=== PATIENT | male | born 1935 | race Caucasian/White ===

== ENCOUNTER 2017-04-03 22:24 | Inpatient (IN) | payer MEDICARE ==
[~2017-04-03] VITALS: Ht 165.1 cm; Wt 106.6 kg
[~2017-04-03 22:24] MED LIST: ALBU18HF IH; ALBU2.5V5 NEB; ALBU8.5H8 INH; ALPR0.254 PO; AMLO10TA2 PO; ASPI325T8 PO; ATEN100T PO; ATEN50TA PO; AZEL23SP NS; BENZ100C PO; BISA5TAB4 PO; BUDE10.2 IH; FLUT1DIS IH; FLUT1DIS3 IH; FURO-68 PO; GLIM1TAB2 PO; Guaifenesin PO; HYDR-2758 PO; IBUP800T19 PO; INDO25CA PO; Ipratropium/Albuterol Sulfate NEB; LISI-334 PO; LISI1TAB7 PO; LOVA40TA2 PO; METH4TAB2 PO; MONT10TA6 PO; POTA20TA12 PO; PRED-220 PO; TRAM-48 PO; VANC1VIA3 MC
[2017-04-03 22:40] VITALS: BP 162/81
[2017-04-03] MEDS ORDERED: VANCOMYCIN PER PHARMACY MC PRN (22:45)
[2017-04-03] MEDS ORDERED: VANCOMYCIN 2 GM in IV NORMAL SALINE 500ML 500 ML IV ONE (23:00)
[2017-04-03] MEDS ORDERED: fentaNYL PF 100 MCG/2 ML VIAL IV PRN (23:15)
[2017-04-03 23:26] LABS: BASO # 0.1 x10^3/uL (0.0-0.2); BASO % 1 % (0-3); EOS # 0.5 x10^3/uL (0.0-0.7); EOS % 4 % (0-3); HEMATOCRIT 44.9 % (39.0-53.0); HEMOGLOBIN 15.2 g/dL (13.0-17.5); LYMPH # 1.6 x10^3/uL (1.0-4.8); LYMPH % 13 % (24-48); MEAN CORPUSCULAR HEMOGLOBIN 30 pg (25-35); MEAN CORPUSCULAR HGB CONC 34 g/dL (31-37); MEAN CORPUSCULAR VOLUME 89 fL (79-100); MONO # 1.6 x10^3/uL (0.0-1.1); MONO % 14 % (0-9); NEUT # 8.2 x10^3uL (1.8-7.7); NEUT % 68 % (31-73); PLATELET COUNT 241 x10^3/uL (140-400); RED BLOOD COUNT 5.03 x10^6/uL (4.30-5.70); RED CELL DISTRIBUTION WIDTH 12.9 % (11.5-14.5)
[2017-04-03] MEDS ORDERED: HYDR-2758 PO (23:30)
[2017-04-03] MEDS ORDERED: ALBU2.5V14 NEB (23:31)
[2017-04-03 23:42] LABS: ALBUMIN 3.9 g/dL (3.4-5.0); ALBUMIN/GLOBULIN RATIO 0.9 (1.0-1.7); CALCIUM 8.8 mg/dL (8.5-10.1); CREATININE 1.6 mg/dL (0.7-1.3); GFR 41.9; POTASSIUM 3.7 mmol/L (3.5-5.1); TOTAL PROTEIN 8.3 g/dL (6.4-8.2)
[2017-04-04 05:01] VITALS: BP 146/83
[2017-04-04 06:10] LABS: CALCIUM 8.3 mg/dL (8.5-10.1); CREATININE 1.5 mg/dL (0.7-1.3); GFR 45.1; POTASSIUM 3.9 mmol/L (3.5-5.1)
[2017-04-04 06:22] LABS: BASO # 0.1 x10^3/uL (0.0-0.2); BASO % 1 % (0-3); EOS # 0.2 x10^3/uL (0.0-0.7); EOS % 2 % (0-3); HEMOGLOBIN 13.9 g/dL (13.0-17.5); LYMPH # 1.7 x10^3/uL (1.0-4.8); LYMPH % 15 % (24-48); MEAN CORPUSCULAR HEMOGLOBIN 30 pg (25-35); MEAN CORPUSCULAR HGB CONC 34 g/dL (31-37); MEAN CORPUSCULAR VOLUME 90 fL (79-100); MONO # 1.7 x10^3/uL (0.0-1.1); MONO % 15 % (0-9); NEUT # 7.3 x10^3uL (1.8-7.7); NEUT % 67 % (31-73); PLATELET COUNT 212 x10^3/uL (140-400); RED BLOOD COUNT 4.57 x10^6/uL (4.30-5.70); RED CELL DISTRIBUTION WIDTH 13.1 % (11.5-14.5)
[2017-04-04 07:35] LABS: SEDIMENTATION RATE 21 (0-15)
[2017-04-04] MEDS ORDERED: HYDROcodone/APAP 5/325MG 1 TAB TABLET PO PRN (07:45)
[2017-04-04] MEDS ORDERED: ALBUTEROL SULFATE 2.5 MG/0.5 ML NEBU. NEB SCH (08:00)
[2017-04-04] MEDS: ASPIRIN 325 MG TABLET PO SCH (08:58)
[2017-04-04] MEDS: ALPRAZolam 0.25 MG TABLET PO SCH ×2 (09:00→20:59)
[2017-04-04] MEDS ORDERED: FUROSEMIDE 40 MG TABLET PO SCH (09:00)
[2017-04-04] MEDS: amLODIPine BESYLATE 10 MG TABLET PO SCH (09:00)
[2017-04-04] MEDS: ATENOLOL 50 MG TABLET PO SCH (09:01)
[2017-04-04] MEDS: GLIMEPIRIDE 1 MG TABLET PO SCH (09:01)
--- NOTE | 2017-04-04 10:08 | HP ---
ADMIT DATE: 04/04/2017 HISTORY OF PRESENT ILLNESS: A 81-year-old gentleman with cellulitis to his right wrist and hand area. The patient has been treated as an outpatient for such. He was placed on oral Cipro; however, the patient began to spike temperatures last night, swollen right hand became increasingly painful and as a result of this, the patient was admitted to the hospital for IV antibiotic therapy and alike. The patient did have an elevated white count when he came in. Other labs are still pending. PAST MEDICAL HISTORY: That of COPD, bronchitis, dementia, anemia of chronic disease, acute renal failure, hypocalcemia, protein malnutrition, hyperbilirubinemia, type 2 diabetes poorly controlled. The patient also has had a history of sleep apnea, pneumonia, hemorrhoids, urinary urgency, degenerative arthritis in leg. MEDICATIONS: DuoNeb treatments, Xanax 0.25, Norvasc 10, aspirin 325, atenolol 100, Advair 250/50, furosemide 40 mg, glyburide, hydrocodone p.r.n. ALLERGIES: Penicillin and codeine. FAMILY HISTORY: Unremarkable. Father had some form of cancer and stroke. SOCIAL HISTORY: No smoking, alcohol, or drug use. Lives at home with his . REVIEW OF SYSTEMS: The patient outside of some fever, chills, swelling to the right hand and eyes, chest pain, shortness of breath, denies abdominal pain, denies any melena, hematochezia, hematemesis. Neurologically intact. PHYSICAL EXAMINATION: GENERAL: White male WD, WN, slightly overweight. VITAL SIGNS: Blood pressure 160/80, respiratory rate 20, pulse 80, afebrile, oxygen saturation 92% on room air. HEENT: The patient's head was atraumatic, normocephalic. Eyes: PERRLA without jaundice. Mouth and throat were normal. NECK: Supple without JVD or carotid bruits. No thyromegaly. LUNGS: Diminished throughout, poor movement of air but clear. CARDIOVASCULAR: Regular sinus rhythm. NEUROLOGIC: The right arm was swollen and tender to touch. Pulses were noted in the radial and ulnar arteries. The hand itself was swollen, red, and markedly tender to the point where he could not squeeze my fingers. The left arm and hand were normal. ABDOMEN: Soft, nontender, no rebound or guarding, positive bowel sounds. EXTREMITIES: No clubbing or cyanosis. Trace edema noted in the lower extremities and in the right arm is noted. NEUROLOGIC: The patient was alert and oriented x 3. The patient was admitted for further evaluation. IMPRESSION: Cellulitis to the right arm, right hand area specifically, type 2 diabetes, risk factor CKD 3, failure of outpatient treatment with oral antibiotics for the cellulitis. We will go ahead and have him admitted and treated for such with IV vancomycin. MANDY CRAIG MD DR: VICTOR HUGO/khadra JOB#: [id number] / [id number]
[2017-04-04 15:48] VITALS: BP 133/70
[2017-04-04] MEDS ORDERED: ALBUTEROL SULFATE 2.5 MG/3 ML NEBU. ONE (20:21)
[2017-04-04 20:30] VITALS: BP 146/86
[2017-04-05 00:05] VITALS: BP 136/73
--- NOTE | 2017-04-05 00:25 | ACF ---
Admission Criteria Forms CELLULITIS Clinical Indications for Admission to Inpatient Care (Place 'X' for any and all applicable criteria): Admission is indicated for ANY ONE of the following(1)(2)(3)(4)(5): [ ]I. Limb-threatening infection [ ]II. High-risk comorbid condition as indicated by ANY ONE of the following: [ ]a) Uncontrolled diabetes (eg, HbA1c greater than 10% (0.1)) [ ]b) Cirrhosis [ ]c) Neutropenia [ ]d) Asplenia [ ]e) Immunosuppression [ ]f) Symptomatic heart failure [ ]III. Failure of outpatient therapy as indicated by ALL of the following: [ ]a) Progression or no improvement after adequate trial (minimum of 48 hours, with longer period for stable lower extremity infection) [ ]b) Adequate antibiotic regimen as indicated by use of ANY ONE of the following: [ ]i) First-generation cephalosporin (e.g., cephalexin) [ ]ii) Antistaphylococcal penicillin (e.g., dicloxacillin) [ ]iii) Penicillin-allergic patient regimen (clindamycin, extended-spectrum fluoroquinolone, or doxycycline) [ ]iv) Resistant organism (eg, methicillin-resistant Staphylococcus aureus) regimen (6) [ ]c) Outpatient intravenous therapy regimen is not appropriate due to ANY ONE of the following. (7)(8)(9)(10): [ ]i) It was tried and was not successful (eg, progression of infection). [ ]ii) It is not available or cannot be arranged in a clinically appropriate time frame (e.g., the next day). [ ]iii) Clinical presentation (eg, acuity of infection, rapidity of progression, confirmed or suspected bacteremia) is judged to require ALL of the following: [ ]1) Immediate initiation of intravenous therapy ( eg, cannot wait for next day) [ ]2) Intensity of patient monitoring and observation (eg, vital sign measurement, checks for infection progression) that cannot be provided at other than inpatient level of care [ ]IV. Mental status changes [ ]V. Bacteremia [ ]. Hemodynamic instability [ ]VII. Suspected necrotizing soft tissue infection (e.g., gas in tissue)(11)( 12) [ ]VIII. Orbital infection (13)(14) [ ]IX. Associated surgical procedure (e.g., abscess drainage, debridement) not amenable to outpatient, emergency department, or observation care [ ]X. Cutaneous gangrene [ ]XI. High fever (temperature greater than 39.5 degrees C (103.1 degrees F) (oral)) not responsive to outpatient, emergency department, or observation care therapy [X]XIII. Inpatient admission required rather than observation care (Also use Cellulitis: Observation Care as appropriate) because of ANY ONE of the following : [ ]a) Periorbital or perineal infection that is severe or worsening [ ]b) Severe pain requiring acute inpatient management [X]c) IV fluid to replace significant ongoing (e.g., for over 24 hours) losses (greater than 3L/m2 per day) [ ]d) Compartment syndrome monitoring (17) [ ]e) Strict or protective (eg, laminar flow) isolation [ ]f) Urgent debridement or skin grafting [ ]g) Bone or joint debridement [ ]h) Immediate inpatient surgery [ ]i) Other condition, treatment or monitoring requiring inpatient admission Extended stay beyond goal length of stay may be needed for (1)(18): [ ]a) Necrotizing soft tissue infection or fasciitis [ ]b) Gram-negative infection [ ]c) Methicillin-resistant Staphylococcal aureus (MRSA) infection [ ]d) Peripheral venous insufficiency with cellulitis [ ]e) Extensive edema [ ]f) Sepsis or continued Hemodynamic instability [ ]g) Continued high fever or mental status change [ ]h) Bacteremia [ ]i) Active serious comorbid conditions ( eg, heart failure, renal insufficiency) The original [employer] content created by [employer] has been revised. The portions of the content which have been revised are identified through the use of italic text or in bold, and [facility] has neither reviewed nor approved the modified material. All other unmodified content is copyright [facility] Please see references footnoted in the original [facility] edition 2016 Admission Criteria Met?: Yes DAMION SAUCEDO Apr 05, 2017 00:24
[2017-04-05 05:02] VITALS: BP 115/56
[2017-04-05] MEDS ORDERED: ALBUTEROL SULFATE 2.5 MG/3 ML NEBU. NEB SCH (08:00)
[2017-04-05] MEDS: ALPRAZolam 0.25 MG TABLET PO SCH (08:47)
[2017-04-05] MEDS: ATENOLOL 50 MG TABLET PO SCH (08:47)
[2017-04-05] MEDS: GLIMEPIRIDE 1 MG TABLET PO SCH (08:48)
[2017-04-05] MEDS: amLODIPine BESYLATE 10 MG TABLET PO SCH (08:48)
[2017-04-05] MEDS: ASPIRIN 325 MG TABLET PO SCH (08:48)
[2017-04-05 10:55] VITALS: BP 116/70
[2017-04-05] MEDS ORDERED: VANC1.5P3 IV (11:48)
[2017-04-05] MEDS ORDERED: VANCOMYCIN 1.5 GM in IV NORMAL SALINE 500ML 500 ML IV SCH ×3 (12:00)
== END 2017-04-05 15:09 | disposition home or self-care (01) | DRG 603 ==
LOC: 1 SOUTH 22:33
PROVIDERS: ADMIT Family Medicine; ATTEND Family Medicine
DX: L03.113 Cellulitis of right upper limb (principal); J44.9 Chronic obstructive pulmonary disease, unspecified; F03.90 Unspecified dementia, unspecified severity, without behavioral disturbance, psychotic disturbance, mood disturbance, and anxiety; M19.90 Unspecified osteoarthritis, unspecified site; K64.9 Unspecified hemorrhoids; G47.30 Sleep apnea, unspecified; Z79.899 Other long term (current) drug therapy; Z82.3 Family history of stroke; Z88.5 Allergy status to narcotic agent; Z88.0 Allergy status to penicillin; Z68.39 Body mass index [BMI] 39.0-39.9, adult; Z87.01 Personal history of pneumonia (recurrent); J40 Bronchitis, not specified as acute or chronic; D63.8 Anemia in other chronic diseases classified elsewhere; E11.22 Type 2 diabetes mellitus with diabetic chronic kidney disease; N18.3 Chronic kidney disease, stage 3 (moderate)
CPT/HCPCS: 36415; 80048; 80053; 82947; 85027; 85651; 87040; 94640; J3010; J3370; J7040; J7611; J7613

== ENCOUNTER → 2018-03-20 | Outpatient (CLI) | payer MEDICARE ==
[2017-04-15 13:50] VITALS: BP 138/75
[~2018-03-20] MED LIST changes: +ALBU2.5V14 NEB; -INDO25CA PO; +INDO25CA5 PO; +VANC1.5P26 IV
[2018-03-20 12:37] LABS: BASO # 0.1 x10^3/uL (0.0-0.2); BASO % 1 % (0-3); EOS # 0.4 x10^3/uL (0.0-0.7); EOS % 4 % (0-3); HEMATOCRIT 46.5 % (39.0-53.0); HEMOGLOBIN 16.1 g/dL (13.0-17.5); LYMPH # 2.5 x10^3/uL (1.0-4.8); LYMPH % 25 % (24-48); MEAN CORPUSCULAR HEMOGLOBIN 31 pg (25-35); MEAN CORPUSCULAR HGB CONC 35 g/dL (31-37); MEAN CORPUSCULAR VOLUME 91 fL (79-100); MONO # 1.5 x10^3/uL (0.0-1.1); MONO % 15 % (0-9); NEUT # 5.4 x10^3uL (1.8-7.7); NEUT % 55 % (31-73); RED BLOOD COUNT 5.12 x10^6/uL (4.30-5.70); RED CELL DISTRIBUTION WIDTH 13.1 % (11.5-14.5); WHITE BLOOD COUNT 9.9 x10^3/uL (4.0-11.0)
[2018-03-20 12:49] LABS: PLATELET COUNT 195 x10^3/uL (140-400)
== END | disposition home or self-care (01) ==
LOC: LAB 11:56
PROVIDERS: ATTEND Nurse Practitioner Adult Health
DX: I12.9 Hypertensive chronic kidney disease with stage 1 through stage 4 chronic kidney disease, or unspecified chronic kidney disease (principal); E11.22 Type 2 diabetes mellitus with diabetic chronic kidney disease; N18.3 Chronic kidney disease, stage 3 (moderate); E78.5 Hyperlipidemia, unspecified; E78.00 Pure hypercholesterolemia, unspecified; D63.8 Anemia in other chronic diseases classified elsewhere; J44.9 Chronic obstructive pulmonary disease, unspecified
CPT/HCPCS: 36415; 85025

== ENCOUNTER 2018-10-13 14:49 | Inpatient (IN) | payer MEDICARE ==
[~2018-10-13] VITALS: Ht 162.6 cm; Wt 110.9 kg
[~2018-10-13 14:49] MED LIST changes: -ALBU18HF IH; +ALBU2.5V8 IH; +ALBU2.5V8 INH; -ALBU8.5H8 INH; -AMLO10TA2 PO; +AMLO10TA8 PO; +HYDR-2155 PO; -HYDR-2758 PO; -MONT10TA6 PO; +MONT10TA80 PO; +VANC1.5P17 IV; -VANC1.5P26 IV
[2018-10-13] MEDS ORDERED: ACET500T68 PO (16:24)
[2018-10-13] MEDS ORDERED: ALBU2.5V14 NEB (16:32)
[2018-10-13] MEDS ORDERED: FUROSEMIDE 40 MG/4 ML VIAL IVP ONE (17:15)
--- NOTE | 2018-10-13 18:55 | RAD ---
PA and lateral chest HISTORY: Chest congestion, fluid buildup PA and lateral views were taken of the chest. Heart upper normal in size. The aorta is tortuous. There is a granuloma on the right. There are no confluent infiltrates. There is no pleural effusion. IMPRESSION: 1. No acute infiltrates. Electronically signed by: Jose J Torres MD (10/13/2018 6:51 PM) [facility]
[2018-10-13 19:19] VITALS: BP 116/69
[2018-10-13] MEDS ORDERED: FUROSEMIDE 40 MG TABLET PO ONE (20:15)
[2018-10-13] MEDS: ALBUTEROL SULFATE 2.5 MG/3 ML NEBU. NEB SCH (20:45)
[2018-10-13] MEDS ORDERED: NON FORMULARY ITEM (Albuterol Sulfate (Albuterol Sulfate Conc Neb Soln) 2.5 MG) NEB SCH (21:00)
[2018-10-13] MEDS: ALPRAZolam 0.25 MG TABLET PO SCH (21:31)
[2018-10-13 23:05] VITALS: BP 144/79
[2018-10-13 23:18] LABS: BASO # 0.1 x10^3/uL (0.0-0.2); BASO % 1 % (0-3); EOS # 0.7 x10^3/uL (0.0-0.7); EOS % 8 % (0-3); HEMOGLOBIN 14.2 g/dL (13.0-17.5); LYMPH # 1.8 x10^3/uL (1.0-4.8); LYMPH % 22 % (24-48); MEAN CORPUSCULAR HEMOGLOBIN 31 pg (25-35); MEAN CORPUSCULAR HGB CONC 34 g/dL (31-37); MEAN CORPUSCULAR VOLUME 92 fL (79-100); MONO # 1.2 x10^3/uL (0.0-1.1); MONO % 14 % (0-9); NEUT # 4.5 x10^3uL (1.8-7.7); NEUT % 55 % (31-73); PLATELET COUNT 219 x10^3/uL (140-400); RED BLOOD COUNT 4.55 x10^6/uL (4.30-5.70); RED CELL DISTRIBUTION WIDTH 13.2 % (11.5-14.5); WHITE BLOOD COUNT 8.3 x10^3/uL (4.0-11.0)
[2018-10-13 23:34] LABS: ALBUMIN 3.4 g/dL (3.4-5.0); ALBUMIN/GLOBULIN RATIO 0.9 (1.0-1.7); C REACTIVE PROTEIN 4.7 mg/L (0-3.3); CALCIUM 8.6 mg/dL (8.5-10.1); CREATININE 1.5 mg/dL (0.7-1.3); GFR 44.9; POTASSIUM 3.5 mmol/L (3.5-5.1); TOTAL BILIRUBIN 0.9 mg/dL (0.2-1.0); TOTAL PROTEIN 7.2 g/dL (6.4-8.2)
[2018-10-13 23:47] LABS: BACTERIA,URINE 0 /HPF (0-FEW); BILIRUBIN,URINE NEG (NEG); CLARITY,URINE CLEAR; COLOR,URINE YELLOW; GLUCOSE,URINE NEG (NEG); NITRITE,URINE NEG (NEG); RBC,URINE 0 /HPF (0-2); UROBILINOGEN,URINE 0.2 mg/dL (0.2 mg/dL); WBC,URINE RARE /HPF (0-4)
[2018-10-14 01:19] LABS: BGAS PH 7.44 (7.35-7.46)
[2018-10-14 06:14] VITALS: BP 105/54
[2018-10-14] MEDS ORDERED: FUROSEMIDE 40 MG/4 ML VIAL IVP SCH (09:00)
[2018-10-14] MEDS ORDERED: FUROSEMIDE 40 MG TABLET PO SCH (09:00)
[2018-10-14] MEDS: FUROSEMIDE 40 MG TABLET PO SCH (09:10)
[2018-10-14] MEDS: ALPRAZolam 0.25 MG TABLET PO SCH ×2 (09:10→21:38)
[2018-10-14] MEDS: ASPIRIN 325 MG TABLET PO SCH (09:11)
[2018-10-14] MEDS: GLIMEPIRIDE 2 MG TABLET PO SCH (09:11)
[2018-10-14] MEDS: amLODIPine BESYLATE 10 MG TABLET PO SCH (09:11)
[2018-10-14] MEDS: ATENOLOL 50 MG TABLET PO SCH (09:12)
[2018-10-14] MEDS: ACETAMINOPHEN 500 MG TABLET PO SCH (09:12)
[2018-10-14] MEDS: ALBUTEROL SULFATE 2.5 MG/3 ML NEBU. NEB SCH ×2 (09:17→20:41)
[2018-10-14 10:28] VITALS: BP 133/73
[2018-10-14 14:52] LABS: CALCIUM 8.7 mg/dL (8.5-10.1); CREATININE 1.8 mg/dL (0.7-1.3); GFR 36.4; POTASSIUM 3.6 mmol/L (3.5-5.1)
[2018-10-14 15:05] VITALS: BP 147/80
[2018-10-14 20:55] VITALS: BP 148/64
[2018-10-14 23:09] LABS: HEMOGLOBIN A1C 6.8 % (4.8-5.6)
--- NOTE | 2018-10-14 23:26 | HP ---
ADMIT DATE: 10/13/2018 HISTORY OF PRESENT ILLNESS: The patient is an 83-year-old male patient who was admitted directly from Dr. Garcia's office with a complaint of marked swelling of the legs and about 20-pound weight increase. He also complained of severe pain in his both hands because of osteoarthritis. He was basically admitted and started on his medication is difficult to start him on IV Lasix. We will start him on oral Lasix to start with, and we did consult the nurses to place midline. PAST MEDICAL HISTORY: On further questioning him, he denied any chest pain, denied any shortness of breath, orthopnea, paroxysmal nocturnal dyspnea. Denied any cough, phlegm or hemoptysis. PAST MEDICAL HISTORY: Significant for chronic obstructive pulmonary disease, anemia of chronic kidney disease, hypocalcemia, hyperbilirubinemia, type 2 diabetes is poorly controlled; history of sleep apnea, urinary urgency, degenerative arthritis involving both his hands and knees. PAST SURGICAL HISTORY: Significant for appendectomy. ALLERGIES: HE IS ALLERGIC TO PENICILLIN AND CODEINE. FAMILY HISTORY: Unremarkable. Father has some kind of cancer and stroke. SOCIAL HISTORY: He lives with his at home. He does not smoke, drink alcohol or do recreational drugs. MEDICATIONS: He is currently on albuterol sulfate 2.5 mg/0.5 mL by nebulizer twice a day, atenolol 100 mg once a day, amlodipine 10 mg once a day, aspirin 325 mg once a day, Tylenol 500 mg p.o. daily, alprazolam 0.25 mg twice a day, furosemide 40 mg every other day and glimepiride 1 mg daily. REVIEW OF SYSTEMS: The patient did complain of blurring poor vision, but denied any cataract, glaucoma or macular degeneration. Denied any earache, tinnitus or sensorineural deafness. Denied any nosebleeds, stuffy nose or postnasal drip. Denied any sore throat, sore tongue. Denied any nausea, vomiting, diarrhea or constipation. Denied any hematemesis, melena or hematochezia. Denied any dysuria, frequency or hematuria. Denied any chest pain, shortness of breath, orthopnea, paroxysmal nocturnal dyspnea. Denied any cough, phlegm or hemoptysis. PHYSICAL EXAMINATION: GENERAL: On arrival to the hospital, he looked well and was clearly in no apparent respiratory distress, pale. There is no pallor, jaundice, cyanosis, or thyromegaly. No jugular venous distension. No lower limb edema. He has marked bilateral lower limb edema. VITAL SIGNS: Her heart rate was 80, blood pressure 116/69, temperature was 98.1, respiratory rate was 18 and oxygen saturation was 89%. HEAD, EYES: Showed normocephalic, atraumatic. NECK: Supple. HEART: Showed normal first and second heart sounds with no gallop, rub or murmur. CHEST: Clear to auscultation. No crepitation or rhonchi. ABDOMEN: Distended, soft, nontender. No guarding or rigidity. No organomegaly. Hernial orifice intact. Bowel sounds normal. NEUROLOGIC: He was very hard of hearing, otherwise all his cranial nerves are intact. He ambulates with a walker. LABORATORY DATA: His lab work on arrival showed a white cell count of 8300, hemoglobin 14.2, hematocrit 42, MCV 92, and platelet count 219,000 with normal manual differential. His serum sodium was 141, potassium 3.5, chloride 105, bicarbonate 29, anion gap of 7, BUN 19, creatinine 1.5, estimated GFR was 44 mL per minute, his glucose 143, calcium was 8.6. Total bilirubin, AST, ALT, alkaline phosphatase were normal. Total protein was 7.2, albumin was 3.4. C-reactive protein was 4.7. His blood gases showed a pH of 7.44, pCO2 of 41, pO2 of 70, bicarbonate 28, oxygen saturation was 94% on FiO2 28%. Urinalysis was essentially unremarkable. He did have a chest x-ray, which basically showed that the heart appears normal in size. The aorta is tortuous. There is a granuloma on the right. There are no confluent infiltrates. There is no pleural effusion. ASSESSMENT AND PLAN: The patient was restarted all his medication and started on Lasix. We will arrange for him to have an IV line and if not, we will ask to place a midline. Start him on IV Lasix. ZONIA SAMANIEGO MD DR: SALLIE/khadra JOB#: [id number] / [id number]
--- NOTE | 2018-10-14 23:27 | PN ---
DATE: 10/14/2018 SUBJECTIVE: The patient is sitting comfortably in his bed, in no apparent respiratory distress. He continued to complain of swelling of his legs and also pain in his joints. PHYSICAL EXAMINATION: GENERAL: When I examined him this afternoon, he looked well and was clearly in no apparent respiratory distress. There is no pallor, jaundice, cyanosis or thyromegaly. No jugular venous distention, but mild bilateral lower limb edema. VITAL SIGNS: His heart rate was 62, blood pressure was 133/73, temperature was 98, respiratory rate 22 and oxygen saturation was 93% on room air. HEAD, EYES, EARS, NOSE AND THROAT: Showed normocephalic, atraumatic. NECK: Supple. HEART: Showed normal first and second heart sounds. No gallop, rub, or murmur. CHEST: Showed central trachea, equally reduced expansion, reduced air entry, vesicular sounds. No crepitation or rhonchi. ABDOMEN: Distended, soft, nontender. NEUROLOGIC: He was very hard of hearing. Otherwise, all cranial nerves are intact. He moves extremities without difficulty, although he walks with a walker. LABORATORY DATA: He has no lab work done; however, his potassium is slightly low at 3.5, so I arranged for him to have a stat BMP. PLAN: I will continue with IV Lasix and all other medication. We will check his weight daily and decide on further management accordingly. ZONIA SAMANIEGO MD DR: SALLIE/khadra JOB#: [id number] / [id number]
[2018-10-14 23:41] VITALS: BP 144/78
[2018-10-15 05:03] VITALS: BP 155/78
[2018-10-15 06:24] LABS: HEMATOCRIT 40.9 % (39.0-53.0); HEMOGLOBIN 13.8 g/dL (13.0-17.5); RED BLOOD COUNT 4.42 x10^6/uL (4.30-5.70); WHITE BLOOD COUNT 7.9 x10^3/uL (4.0-11.0)
[2018-10-15 06:47] LABS: ALBUMIN 3.2 g/dL (3.4-5.0); ALBUMIN/GLOBULIN RATIO 0.9 (1.0-1.7); CALCIUM 8.3 mg/dL (8.5-10.1); CREATININE 1.4 mg/dL (0.7-1.3); GFR 48.6; POTASSIUM 3.4 mmol/L (3.5-5.1); TOTAL BILIRUBIN 1.6 mg/dL (0.2-1.0); TOTAL PROTEIN 6.8 g/dL (6.4-8.2); URIC ACID 10.1 mg/dL (3.5-7.2)
[2018-10-15] MEDS: ASPIRIN 325 MG TABLET PO SCH (08:33)
[2018-10-15] MEDS: FUROSEMIDE 40 MG TABLET PO SCH (08:33)
[2018-10-15] MEDS: ATENOLOL 50 MG TABLET PO SCH (08:33)
[2018-10-15] MEDS: GLIMEPIRIDE 2 MG TABLET PO SCH (08:33)
[2018-10-15] MEDS: ALPRAZolam 0.25 MG TABLET PO SCH ×2 (08:34→20:30)
[2018-10-15] MEDS: ACETAMINOPHEN 500 MG TABLET PO SCH (08:34)
[2018-10-15] MEDS: amLODIPine BESYLATE 10 MG TABLET PO SCH (08:34)
[2018-10-15] MEDS: ALBUTEROL SULFATE 2.5 MG/3 ML NEBU. NEB SCH ×2 (10:30→20:39)
[2018-10-15 11:13] VITALS: BP 127/73
[2018-10-15 16:10] VITALS: BP 146/70
[2018-10-15 19:49] VITALS: BP 134/68
--- NOTE | 2018-10-15 21:43 | PN ---
DATE: SUBJECTIVE: An 83-year-old male in with acute exacerbation of COPD with hypoxia. The patient is resting fairly comfortably, making fairly good progress overall. His chest x-ray really did not show too much, but he does have increased shortness of breath. Dr. Enamorado has seen the patient, does have swelling in his legs. Otherwise, his vital signs look good. OBJECTIVE: VITAL SIGNS: Blood pressure 130/70, respiration 22, pulse 55, afebrile. GENERAL: The patient is alert and oriented. LUNGS: Diminished, primarily in the bases, but clear than they have been. CARDIOVASCULAR: Regular sinus rhythm. ABDOMEN: Soft, nontender, very protuberant. EXTREMITIES: No clubbing, cyanosis. Trace edema. NEUROLOGIC: Intact. The patient otherwise will continue to be monitored. He is on Lasix daily and we will continue to diurese him and hopefully ready for discharge here soon. He is working with PT, OT to regain his strength. MANDY CRAIG MD DR: VICTOR HUGO/khadra JOB#: [id number] / [id number]
[2018-10-16 05:54] VITALS: BP 117/69
[2018-10-16 06:09] LABS: BASO # 0.1 x10^3/uL (0.0-0.2); BASO % 1 % (0-3); EOS # 0.7 x10^3/uL (0.0-0.7); EOS % 9 % (0-3); HEMOGLOBIN 14.5 g/dL (13.0-17.5); LYMPH # 1.7 x10^3/uL (1.0-4.8); LYMPH % 21 % (24-48); MEAN CORPUSCULAR HEMOGLOBIN 31 pg (25-35); MEAN CORPUSCULAR HGB CONC 34 g/dL (31-37); MEAN CORPUSCULAR VOLUME 93 fL (79-100); MONO % 13 % (0-9); NEUT # 4.5 x10^3uL (1.8-7.7); NEUT % 56 % (31-73); PLATELET COUNT 218 x10^3/uL (140-400); RED BLOOD COUNT 4.63 x10^6/uL (4.30-5.70); RED CELL DISTRIBUTION WIDTH 12.8 % (11.5-14.5)
[2018-10-16 06:19] LABS: CALCIUM 8.4 mg/dL (8.5-10.1); CREATININE 1.5 mg/dL (0.7-1.3); GFR 44.9; POTASSIUM 3.6 mmol/L (3.5-5.1)
[2018-10-16] MEDS: ALPRAZolam 0.25 MG TABLET PO SCH ×2 (08:16→20:05)
[2018-10-16] MEDS: ATENOLOL 50 MG TABLET PO SCH (08:16)
[2018-10-16] MEDS: ASPIRIN 325 MG TABLET PO SCH (08:16)
[2018-10-16] MEDS: amLODIPine BESYLATE 10 MG TABLET PO SCH (08:17)
[2018-10-16] MEDS: FUROSEMIDE 40 MG TABLET PO SCH (08:17)
[2018-10-16] MEDS: GLIMEPIRIDE 2 MG TABLET PO SCH (08:17)
[2018-10-16] MEDS: ACETAMINOPHEN 500 MG TABLET PO SCH (08:17)
[2018-10-16] MEDS: ALBUTEROL SULFATE 2.5 MG/3 ML NEBU. NEB SCH ×2 (09:52→20:45)
[2018-10-16 15:00] VITALS: BP 124/71
[2018-10-16 19:45] VITALS: BP 138/82
--- NOTE | 2018-10-16 23:53 | PN ---
DATE: SUBJECTIVE: The patient is here with acute exacerbation of chronic obstructive pulmonary disease with hypoxia. He is resting fairly comfortably, making fairly good progress overall. The patient is still having some problems with his breathing, still extremely short of breath with minimal exertion. The patient continued to have aggressive pulmonary toilet. He is on low-dose steroids because of his trouble breathing, still receiving some furosemide. The patient otherwise is doing reasonably well. We will continue to monitor him accordingly and make further evaluation as indicated otherwise. OBJECTIVE: VITAL SIGNS: Blood pressure 124/70, respiratory rate 18, pulse 51, afebrile. LUNGS: Diminished, some rhonchi noted. CARDIOVASCULAR: Regular sinus rhythm. ABDOMEN: Soft, nontender. EXTREMITIES: No clubbing, cyanosis, or edema. The patient otherwise will be monitored carefully. IMPRESSION AND PLAN: Acute exacerbation of chronic obstructive pulmonary disease, peripheral edema, hypokalemia, type 2 diabetes and morbid obesity if not previously mentioned. Continue on diuresis and continue to monitor blood sugar and diuresis and electrolytes. MANDY CRAIG MD DR: VICTOR HUGO/khadra JOB#: [id number] / [id number]
[2018-10-17 06:15] VITALS: BP 147/78
[2018-10-17] MEDS: ATENOLOL 50 MG TABLET PO SCH (07:58)
[2018-10-17] MEDS: GLIMEPIRIDE 2 MG TABLET PO SCH (07:58)
[2018-10-17] MEDS: ASPIRIN 325 MG TABLET PO SCH (07:58)
[2018-10-17] MEDS: ACETAMINOPHEN 500 MG TABLET PO SCH (07:59)
[2018-10-17] MEDS: FUROSEMIDE 40 MG TABLET PO SCH (07:59)
[2018-10-17] MEDS: amLODIPine BESYLATE 10 MG TABLET PO SCH (07:59)
[2018-10-17] MEDS: ALPRAZolam 0.25 MG TABLET PO SCH (07:59)
[2018-10-17] MEDS ORDERED: PRED20TA PO (08:49)
[2018-10-17] MEDS ORDERED: predniSONE 20 MG TABLET PO SCH (09:00)
[2018-10-17] MEDS: ALBUTEROL SULFATE 2.5 MG/3 ML NEBU. NEB SCH (09:23)
[2018-10-17] MEDS ORDERED: FURO-68 PO (10:15)
[2018-10-17 11:52] VITALS: BP 131/69
--- NOTE | 2018-11-12 13:57 | DS ---
DATE OF DISCHARGE: 10/17/2018 HOSPITAL COURSE: The patient is an 83-year-old gentleman came in with increased shortness of breath, marked swelling to his legs, complains of severe pain in both his arms and legs, he has severe osteoarthritis. The patient had failed outpatient therapy and was brought in to the hospital for further evaluation and treatment of his fluid retention as well as shortness of breath, hypoxia and the like. The patient was down as low as 80-89% on room air. The patient was given aggressive pulmonary toilet to reduce his swelling in his legs. The patient's chest x-ray had shown some atelectasis. The patient made good progress with IV diuresis and good pulmonary treatment. The patient made good progress overall. He was apparently declined SNF unit and was discharged home for [facility]. Otherwise, the patient made reasonably good progress overall and was discharged home for further evaluation and treatment. ASSESSMENT: Therefore, acute exacerbation of chronic obstructive pulmonary disease with respiratory insufficiency and hypoxia, severe peripheral edema, nonresponsive to oral medications, hypokalemia, type 2 diabetes, morbid obesity, chronic kidney disease stage 3, with renal stasis, moderate protein malnutrition, hypoxia, morbid obesity, paroxysmal nocturnal dyspnea, 20-pound weight gain. PLAN: As above, to be discharged home. Follow up as an outpatient with home health. See MRAD. Decreased activity. Plan as above. MANDY CRAIG MD DR: VICTOR HUGO/khadra JOB#: [id number] / [id number]
== END 2018-10-17 13:05 | disposition home health service (06) | DRG 191 ==
LOC: 1 SOUTH 14:49
PROVIDERS: ADMIT Family Medicine; ATTEND Family Medicine
DX: J44.1 Chronic obstructive pulmonary disease with (acute) exacerbation (principal); Z68.41 Body mass index [BMI] 40.0-44.9, adult; E87.6 Hypokalemia; E11.22 Type 2 diabetes mellitus with diabetic chronic kidney disease; G47.30 Sleep apnea, unspecified; E66.01 Morbid (severe) obesity due to excess calories; M19.90 Unspecified osteoarthritis, unspecified site; R09.02 Hypoxemia; Z82.3 Family history of stroke; Z88.5 Allergy status to narcotic agent; Z79.899 Other long term (current) drug therapy; Z88.0 Allergy status to penicillin; Z80.9 Family history of malignant neoplasm, unspecified
CPT/HCPCS: 36415; 71046; 80048; 80053; 81001; 82803; 82947; 83036; 83880; 84443; 84550; 85025; 85027; 85651; 86140; 93005; 94640; J7512; J7613

== ENCOUNTER 2019-10-06 22:29 | Inpatient (IN) | payer MEDICARE ==
[~2019-10-06] VITALS: Ht 162.6 cm; Wt 108.2 kg
[~2019-10-06 22:29] MED LIST changes: +ACET500T68 PO; -GLIM1TAB2 PO; +GLIM1TAB7 PO; +INDO25CA21 PO; -INDO25CA5 PO; +LISI1TAB20 PO; -LISI1TAB7 PO; +PRED20TA PO
[2019-10-06] MEDS ORDERED: IV NORMAL SALINE 1,000ML 1,000 ML IV SCH (23:15)
--- NOTE | 2019-10-06 23:51 | RAD ---
EXAM: AP View of the chest DATE: 10/06/2019 11:11 PM INDICATION: Fever, weakness COMPARISON: 10/13/2018 FINDINGS: The heart is not enlarged. Mediastinal and hilar contours are normal. Mild patchy opacities bilateral lung bases likely atelectasis. Small left pleural effusion. No pneumothorax. IMPRESSION: Mild patchy opacities bilateral lung bases likely atelectasis. Electronically signed by: Franco Arce MD (10/06/2019 11:48 PM) [place] [id number]
--- NOTE | 2019-10-06 23:57 | PHYS DOC ---
Past History Past Medical History: CHF, COPD, High Cholesterol, Hypertension Past Surgical History: No Surgical History Alcohol Use: None Drug Use: None Adult General Chief Complaint Chief Complaint: FEVER HPI HPI Patient is a 84-year-old male who presents with report of fever and cough. Patient indicates that his cough is been productive of sputum. Family member indicates that fever was up to 101.5 at home. She is concerned because patient has had sepsis in the past. Patient also complains of feeling weak all over. He denies any chest pain but does admit some shortness of breath, especially on exertion.[] Review of Systems Review of Systems Constitutional: Positive fever and chills [] Eyes: Denies change in visual acuity, redness, or eye pain [] HENT: Denies nasal congestion or sore throat [] Respiratory: Positive productive cough and exertional shortness of breath [] Cardiovascular: No additional information not addressed in HPI [] GI: Denies abdominal pain, nausea, vomiting or diarrhea [] Integument: Denies rash or skin lesions [] Neurologic: Denies headache, focal weakness or sensory changes [] All other systems were reviewed and found to be within normal limits, except as documented in this note. Current Medications Current Medications Current Medications Medications (Trade) Dose Ordered Sig/Yusuf Start Time Stop Time Status Last Admin Dose Admin Sodium Chloride 1,000 ml @ 1,000 mls/hr Q1H 10/06/19 23:15 10/07/19 00:14 Allergies Allergies Allergies Coded Allergies Type Severity Reaction Last Updated Verified Penicillins Allergy Intermediate Nausea and Vomiting 05/23/14 Yes codeine Allergy Intermediate Itching 05/23/14 Yes Physical Exam Physical Exam Constitutional: Well developed, well nourished, no acute distress, non-toxic appearance. [] HENT: Normocephalic, atraumatic, bilateral external ears normal, oropharynx moist, no oral exudates, nose normal. [] Eyes: PERRLA, EOMI, conjunctiva normal, no discharge. [] Neck: Normal range of motion, no tenderness, supple. [] Cardiovascular: Regular rate and rhythm[] Lungs & Thorax: Fine rhonchi are noted bilaterally to auscultation [] Abdomen: Bowel sounds normal, soft, no tenderness. [] Skin: Warm, dry, no erythema, no rash. [] Extremities: No tenderness, no cyanosis, no clubbing, ROM intact. [] Neurologic: Alert and oriented X 3, no focal deficits noted. [] Current Patient Data Vital Signs Vital Signs Date Time Temp Pulse Resp B/P (MAP) Pulse Ox O2 Delivery O2 Flow Rate FiO2 10/06/19 22:38 99.5 75 20 141/51 (81) 95 Room Air EKG EKG [] Radiology/Procedures Radiology/Procedures [] Impressions: PROCEDURE: PORTABLE CHEST 1V EXAM: AP View of the chest DATE: 10/06/2019 11:11 PM INDICATION: Fever, weakness COMPARISON: 10/13/2018 FINDINGS: The heart is not enlarged. Mediastinal and hilar contours are normal. Mild patchy opacities bilateral lung bases likely atelectasis. Small left pleural effusion. No pneumothorax. IMPRESSION: Mild patchy opacities bilateral lung bases likely atelectasis. Electronically signed by: Fracno Arce MD (10/06/2019 11:48 PM) [facility] [place] Course & Med Decision Making Course & Med Decision Making Pertinent Labs and Imaging studies reviewed. (See chart for details) [] Dragon Disclaimer Dragon Disclaimer This electronic medical record was generated, in whole or in part, using a voice recognition dictation system. Departure Departure: Impression: Primary Impression: Community acquired pneumonia Disposition: ADMITTED INPATIENT Admitting Physician: Mandy Craig Condition: IMPROVED Referrals: MANDY CRAIG MD (PCP) Problem Qualifiers Primary Impression: Community acquired pneumonia Laterality: unspecified laterality Qualified Codes: J18.9 - Pneumonia, unspecified organism PATRICIA DIAS Jr. DO Oct 06, 2019 23:57
[2019-10-07 00:21] LABS: BASO # 0.1 x10^3/uL (0.0-0.2); BASO % 1 % (0-3); EOS # 0.4 x10^3/uL (0.0-0.7); EOS % 3 % (0-3); HEMOGLOBIN 13.8 g/dL (13.0-17.5); LYMPH % 8 % (24-48); MEAN CORPUSCULAR HEMOGLOBIN 30 pg (25-35); MEAN CORPUSCULAR HGB CONC 33 g/dL (31-37); MEAN CORPUSCULAR VOLUME 92 fL (79-100); MONO # 1.8 x10^3/uL (0.0-1.1); MONO % 13 % (0-9); NEUT # 10.6 x10^3uL (1.8-7.7); NEUT % 76 % (31-73); PLATELET COUNT 234 x10^3/uL (140-400); RED BLOOD COUNT 4.55 x10^6/uL (4.30-5.70); RED CELL DISTRIBUTION WIDTH 12.8 % (11.5-14.5)
[2019-10-07 00:26] LABS: CALCIUM 8.6 mg/dL (8.5-10.1); CREATININE 1.7 mg/dL (0.7-1.3); GFR 38.8; POTASSIUM 4.3 mmol/L (3.5-5.1)
[2019-10-07 00:32] LABS: ALBUMIN 3.6 g/dL (3.4-5.0); DIRECT BILIRUBIN 0.2 mg/dL (0.0-0.2); TOTAL BILIRUBIN 0.9 mg/dL (0.2-1.0)
[2019-10-07 00:44] LABS: INFLUENZA A PATIENT NEGATIVE (NEGATIVE); INFLUENZA B PATIENT NEGATIVE (NEGATIVE)
[2019-10-07] MEDS ORDERED: ACETAMINOPHEN 325 MG TABLET PO PRN (01:30)
[2019-10-07] MEDS ORDERED: MORPHINE SULFATE 2 MG/ML DISP.SYRIN. IV PRN (01:30)
[2019-10-07] MEDS ORDERED: ONDANSETRON PF 4 MG/2 ML VIAL. IV PRN (01:30)
[2019-10-07 03:36] VITALS: BP 122/72
[2019-10-07] MEDS: IV NORMAL SALINE 1,000ML 1,000 ML IV SCH ×3 (03:55→17:34)
[2019-10-07] MEDS ORDERED: LISI-334 PO (04:24)
--- NOTE | 2019-10-07 04:24 | NUR ---
PT presented to ER with fever for around 12 hours, highest at home per of 101.5. PT afebrile on admission to floor. PT transported via EMS, safely transferred to bed. PT immediately needed to urinate. PT provided walker. Assessed PT on walking to bathroom. PT appeared steady. PT changed into gown. Reviewed with PT his PMH, PSH, SH, FH and medications. Medications were provided by on paper (see chart). Medications have been reviewed, awaiting MD review/restart.
[2019-10-07] MEDS ORDERED: IPRATRPIUM/ALBUTEROL 0.5/2.5MG 3 ML NEBU. ONE (05:21)
[2019-10-07 05:33] VITALS: BP 99/55
[2019-10-07] MEDS: IPRATRPIUM/ALBUTEROL 0.5/2.5MG 3 ML NEBU. NEB SCH ×4 (05:37→20:36)
[2019-10-07] MEDS: FUROSEMIDE 40 MG TABLET PO SCH (09:00)
[2019-10-07] MEDS ORDERED: NON FORMULARY ITEM (Albuterol Sulfate (Albuterol Sulfate Conc Neb Soln) 2.5 MG) NEB SCH (09:00)
[2019-10-07] MEDS: amLODIPine BESYLATE 10 MG TABLET PO SCH (09:00)
[2019-10-07] MEDS: LISINOPRIL 20 MG TABLET PO SCH (09:00)
[2019-10-07] MEDS: GLIMEPIRIDE 2 MG TABLET PO SCH (09:55)
[2019-10-07] MEDS: ACETAMINOPHEN 500 MG TABLET PO SCH (09:55)
[2019-10-07] MEDS: ENOXAPARIN 40 MG/0.4 ML SYRINGE. SQ SCH (09:56)
[2019-10-07] MEDS: ASPIRIN 325 MG TABLET PO SCH (09:56)
[2019-10-07] MEDS: ALBUTEROL SULFATE 2.5 MG/3 ML NEBU. NEB SCH ×2 (09:56→20:00)
--- NOTE | 2019-10-07 10:23 | NUR ---
Held BP meds for BP 99/55 this AM, Pulse 59, will reassess in 1 hour. pt is sitting up comfortably in chair.
[2019-10-07 10:48] VITALS: BP 129/77
[2019-10-07 14:59] VITALS: BP 133/76
[2019-10-07] MEDS: ATENOLOL 50 MG TABLET PO SCH (16:24)
[2019-10-07 19:13] VITALS: BP 153/77
[2019-10-07] MEDS: ALPRAZolam 0.25 MG TABLET PO SCH (21:29)
[2019-10-07] MEDS: LACTOBACILLUS RHAMNOSUS GG 1 CAPSULE. PO SCH (21:29)
--- NOTE | 2019-10-07 22:58 | HP ---
ADMIT DATE: 10/07/2019 HISTORY OF PRESENT ILLNESS: The patient has a 2-day history of feeling very ill, fever, chills, night sweats, also productive cough, came in with a temperature of 101.5, became increasingly worse. The patient was unable to maintain breathing appropriately, so therefore, he came into the Emergency Room, found to have pneumonia and exacerbation of his COPD. The patient was admitted to the hospital for further evaluation and treatment and make further evaluation on him as indicated. PAST MEDICAL HISTORY: Includes that of dementia, hearing problems, hypertension, COPD, asthma, pneumonia, sleep apnea, hemorrhoids, obesity, urinary urgency, arthritis, diabetes, anxiety, and alcohol abuse in the past. IMMUNIZATIONS: His tetanus, influenza, and pneumococcal vaccinations are all up-to-date. FAMILY HISTORY: Positive for cancer in mother and stroke in the father. ALLERGIES: ADVERSE REACTION TO PENICILLIN AND CODEINE. HOME MEDICATIONS: Albuterol sulfate, atenolol 100, Norvasc 10, lisinopril 20, aspirin 325, Xanax 0.25 mg, furosemide 40 mg a day. SOCIAL HISTORY: The patient used to be a smoker of about [id number] history smoking; however, quit several years ago. Denies recent alcohol or drug use. REVIEW OF SYSTEMS: The patient does have shortness of breath. Denies any chest pain, headaches, visual changes, blurred vision, double vision. Denies any nausea, vomiting, melena, hematochezia, or hematemesis and neurologically baseline. PHYSICAL EXAMINATION: GENERAL: He is a pleasant white male in no apparent distress at the present time. VITAL SIGNS: Blood pressure that of 99/55, respiratory rate 20, pulse 60. As noted, he had a temperature of 101.5 has come down to 97.8. The patient's oxygen saturation is 95% on room air. HEENT: The patient's head was atraumatic, normocephalic. Eyes: PERRLA without jaundice. Mouth and throat were normal. NECK: Supple, no JVD or thyromegaly. LUNGS: Diminished with some expiratory wheezes. CARDIOVASCULAR: Regular sinus rhythm, S1, S2, without murmur, rub, thrill, or extra heart sounds. ABDOMEN: Soft, nontender, no rebounding, protuberant. EXTREMITIES: No clubbing, cyanosis. Trace edema. NEUROLOGIC: The patient is alert and oriented x 3 and negative Homans sign. Neurologically stable __. LABORATORY DATA: The patient's labs did show white count 14,000 with no left shift. Chemistries demonstrated elevated sugar consistent with his diabetes and a lactic acid of 2.3. Procalcitonin elevated at 0.15, otherwise sodium and potassium normal. BUN and creatinine, elevated at 1.7, GFR of 39. IMPRESSION: Pneumonia of unspecified etiology, community acquired, acute respiratory distress as well as that of exacerbation of chronic obstructive pulmonary disease. The patient otherwise will be admitted for further evaluation, IV antibiotic therapy, aggressive pulmonary toilet and make further evaluation on him per those results. MANDY CRAIG MD DR: VICTOR HUGO/nts JOB#: [id number] / [id number]
[2019-10-07 23:44] VITALS: BP 137/69
[2019-10-08] MEDS: IPRATRPIUM/ALBUTEROL 0.5/2.5MG 3 ML NEBU. NEB SCH (05:00)
[2019-10-08 05:10] VITALS: BP_SYST 101; BP_SYST 134; BP_DIAS 60; BP_DIAS 62
[2019-10-08 06:30] LABS: BASO # 0.1 x10^3/uL (0.0-0.2); BASO % 1 % (0-3); EOS # 0.6 x10^3/uL (0.0-0.7); EOS % 7 % (0-3); HEMATOCRIT 39.4 % (39.0-53.0); HEMOGLOBIN 12.9 g/dL (13.0-17.5); LYMPH % 20 % (24-48); MEAN CORPUSCULAR HEMOGLOBIN 30 pg (25-35); MEAN CORPUSCULAR HGB CONC 33 g/dL (31-37); MEAN CORPUSCULAR VOLUME 92 fL (79-100); MONO # 1.5 x10^3/uL (0.0-1.1); MONO % 15 % (0-9); NEUT # 5.7 x10^3uL (1.8-7.7); NEUT % 57 % (31-73); PLATELET COUNT 210 x10^3/uL (140-400); RED BLOOD COUNT 4.27 x10^6/uL (4.30-5.70); RED CELL DISTRIBUTION WIDTH 12.8 % (11.5-14.5); WHITE BLOOD COUNT 9.9 x10^3/uL (4.0-11.0)
[2019-10-08 06:35] LABS: CALCIUM 8.3 mg/dL (8.5-10.1); CREATININE 1.3 mg/dL (0.7-1.3); GFR 52.9; POTASSIUM 4.1 mmol/L (3.5-5.1)
[2019-10-08] MEDS: LISINOPRIL 20 MG TABLET PO SCH (08:26)
[2019-10-08] MEDS: ACETAMINOPHEN 500 MG TABLET PO SCH (08:26)
[2019-10-08] MEDS: ASPIRIN 325 MG TABLET PO SCH (08:26)
[2019-10-08] MEDS: FUROSEMIDE 40 MG TABLET PO SCH (08:26)
[2019-10-08] MEDS: LACTOBACILLUS RHAMNOSUS GG 1 CAPSULE. PO SCH ×2 (08:26→21:02)
[2019-10-08] MEDS: amLODIPine BESYLATE 10 MG TABLET PO SCH (08:27)
[2019-10-08] MEDS: GLIMEPIRIDE 2 MG TABLET PO SCH (08:27)
[2019-10-08 10:43] VITALS: BP 138/76
[2019-10-08] MEDS: ENOXAPARIN 40 MG/0.4 ML SYRINGE. SQ SCH (10:53)
--- NOTE | 2019-10-08 11:16 | PN ---
DATE: SUBJECTIVE: The patient with acute community-acquired pneumonia. The patient is resting fairly comfortably, making fairly good progress, still has some memory deficits, but he had those prior to coming into the hospital. Overall, he is feeling better. OBJECTIVE: VITAL SIGNS: Blood pressure 130/60, respiratory rate 22, pulse 60, afebrile. GENERAL: The patient is alert and oriented. The patient will continue with PT, OT and make further evaluation on his rehabilitation. White count has come down. He is still a little bit anemic, but other than that his blood sugars are under better control. The patient's procalcitonin is a bit elevated. His lactic acid came down. Otherwise, alert and oriented. LUNGS: Diminished throughout, poor movement of air, but clear. CARDIOVASCULAR: Stable. ABDOMEN: Soft, nontender. The patient is still very weak. Needs PT, OT and rehabilitation. IMPRESSION: Pneumonia of unspecified etiology, community acquired; acute respiratory distress; exacerbation of chronic obstructive pulmonary disease. PLAN: Continue with present drug regimen and hopefully ready for discharge in the a.m. after PT, OT. MANDY CRAIG MD DR: VICTOR HUGO/khadra JOB#: [id number] / [id number]
[2019-10-08] MEDS: ALBUTEROL SULFATE 2.5 MG/3 ML NEBU. NEB SCH ×2 (11:30→20:56)
--- NOTE | 2019-10-08 11:52 | NUR ---
NURSING NOTES: PATIENT UP IN CHAIR AT TIME OF AM ASSESSMENT. PATIENT IS ALERT AND ORIENTED. SPEECH IS CLEAR, ABLE TO MAKE NEEDS KNOWN. LCTA, ON ROOM AIR, NO COUGH NOTED. BOWEL SOUNDS ACTIVE X4 QUADRANTS, NO C/O DISCOMFORT WITH PALPATION. BLE EDEMA NOTED, PITTING +1. NO C/O PAIN NOTED THUS FAR THIS SHIFT. PATIENT STATES HE IS "FEELING MUCH BETTER TODAY." DR. CRAIG HERE TO SEE PATIENT TODAY. NO NEW ORDERS RECEIVED. PLAN IS TO DISCHARGE PATIENT TO HOME TOMORROW. PT/OT SERVICES HERE TO SEE PATIENT TODAY. OT STATES PATIENT WILL NEED TO FOLLOW UP FOR ARTHRITIS IN HANDS AT TIME OF DISCHARGE. DR. CRAIG NOTIFIED OF OT EVALUATION AND NEED TO CONTINUE. NO CONCERNS AT THIS TIME. WILL CONTINUE TO MONITOR PATIENT.
[2019-10-08 14:37] VITALS: BP 142/61
[2019-10-08] MEDS: ATENOLOL 50 MG TABLET PO SCH (16:34)
[2019-10-08] MEDS ORDERED: ACETAMINOPHEN 500 MG TABLET PO PRN (17:00)
[2019-10-08 19:00] VITALS: BP 148/89
[2019-10-08] MEDS: ALPRAZolam 0.25 MG TABLET PO SCH (21:02)
[2019-10-08 23:01] VITALS: BP 109/58
[2019-10-09 06:00] VITALS: BP 124/67
[2019-10-09] MEDS: FUROSEMIDE 40 MG TABLET PO SCH (08:14)
[2019-10-09] MEDS: LACTOBACILLUS RHAMNOSUS GG 1 CAPSULE. PO SCH (08:14)
[2019-10-09] MEDS: GLIMEPIRIDE 2 MG TABLET PO SCH (08:15)
[2019-10-09] MEDS: amLODIPine BESYLATE 10 MG TABLET PO SCH (08:15)
[2019-10-09] MEDS: ASPIRIN 325 MG TABLET PO SCH (08:16)
[2019-10-09] MEDS: ACETAMINOPHEN 500 MG TABLET PO SCH (08:16)
[2019-10-09] MEDS: LISINOPRIL 20 MG TABLET PO SCH (08:16)
[2019-10-09] MEDS: ENOXAPARIN 40 MG/0.4 ML SYRINGE. SQ SCH (08:16)
[2019-10-09] MEDS: ALBUTEROL SULFATE 2.5 MG/3 ML NEBU. NEB SCH (08:18)
--- NOTE | 2019-10-09 10:07 | DS ---
DATE OF DISCHARGE: HOSPITAL COURSE: An 84-year-old male came in with increased shortness of breath and difficulty breathing with coughing and upper respiratory tract infection as well as exacerbation of his COPD. The patient also had a low blood pressure of 99/55. He was placed on IV antibiotic therapy, aggressive pulmonary toilet. The patient's chest x-ray demonstrated some mild diffuse problems. The patient was placed on antibiotics, aggressive pulmonary toilet, made excellent progress during the rest of his hospitalization, began to breathe much better. The patient has some mild dementia to begin with. PHYSICAL EXAMINATION: VITAL SIGNS: Blood pressure 124/67, respiratory rate 20, pulse 60, afebrile. GENERAL: The patient is alert and oriented x 3, baseline for him. He has a little short-term memory loss. LUNGS: The patient's lungs are diminished, but basically clear. CARDIOVASCULAR: Stable. ABDOMEN: Soft, protuberant. The patient will be discharged home. IMPRESSION: Acute exacerbation of chronic obstructive pulmonary disease, acute respiratory distress, acute bronchitis, morbid obesity, mild dementia, anemia of chronic disease, and hyperglycemia. The patient will be discharged home on a diabetic diet, decreased activity, home health and make further evaluation on him and have him follow up in 7-10 days or sooner as needed. Gave phone number for him to call if there are any problems. MANDY CRAIG MD DR: VICTOR HUGO/khadra JOB#: [id number] / [id number]
[2019-10-09] MEDS ORDERED: DOXY100C2 PO (10:29)
--- NOTE | 2019-10-09 10:32 | DISCH ---
HOME HEALTH DISCHARGE/MEDS DISCHARGE INFORMATION: Discharge Date: Oct 09, 2019 Final Diagnosis: Problems Medical Problems: (1) Community acquired pneumonia Status: Acute Condition on Discharge: Stable CODE STATUS: Code Status: Full HOME HEALTH: Face to Face: I certify this patient is under my care and that I, or a nurse practitioner or physician's mailroom assistant working with me, had a face to face encounter that meets the physician face to face encounter requirements with this patient on [Date]. Medical Condition(s): COPD, Pneumonia Half-Way For: Assess Cardiopulm Status, Assess & Educate Safety, Assess/Skilled Observatio, Medication Management Physical Therapy For: Evalulation/Treatment Occupational Therapy For: ADL's Homebound Status Met By: Unsteady balance w/ amb,, Extreme weakness w/ amb. POST DISCHARGE ORDERS: Activity Instructions for Disc: Activity as tolerated Weight Bearing Status after Di: No restrictions DIET AFTER DISCHARGE: Cardiac CHECKS AFTER DISCHARGE: Checks after discharge: Check blood press - daily TREATMENT/EQUIPMENT ORDERS: Discharge Respiratory Equipmen: Nebulizer CERTIFICATION STATEMENT: Certification Statement: Based on the above finding, I certify that this patient is confined to the home and needs intermittent residential care, physical therapy and/or speech therapy, or continues to need occupational therapy.~ This patient is under my care, and I have initiated the establishment of the plan of care.~ This patient will be followed by myself or a community physician who will periodically review the plan of care. DISCHARGE MEDICATIONS: Home Meds Active Scripts Furosemide (LASIX) 40 Mg Tablet, 1 TAB PO DAILY for FLUID RETENTION, #30 TAB 3 Refills LAST DOSE GIVEN: DATE: TIME: AM NEXT DOSE DUE: DATE: SATURDAY TIME: AM Prov:MANDY CRAIG MD 10/17/18 Reported Medications Lisinopril (LISINOPRIL) 20 Mg Tablet, 1 TAB PO DAILY for HTN, #30 TAB 5 Refills 10/07/19 Acetaminophen (ACETAMINOPHEN) 500 Mg Tablet, 500 MG PO DAILY for PAIN LAST DOSE GIVEN: DATE: TODAY TIME: AM NEXT DOSE DUE: DATE: TOMORROW TIME: AM 10/13/18 Albuterol Sulfate (ALBUTEROL SULFATE CONC NEB SOLN) 2.5 Mg/0.5 Ml Vial.neb, 2.5 MG NEB BID for FOR ASTHMA LAST DOSE GIVEN: DATE: TODAY TIME: AM NEXT DOSE DUE: DATE: TODAY TIME: PM 04/03/17 Glimepiride (GLIMEPIRIDE) 1 Mg Tablet, 1 TAB PO DAILY for HIGH BLOOD SUGAR- DIABETES LAST DOSE GIVEN: DATE: TODAY TIME: AM NEXT DOSE DUE: DATE: TOMORROW TIME: AM 10/08/15 Atenolol (ATENOLOL) 100 Mg Tablet, 1 TAB PO DAILY16 for HIGH BLOOD PRESSURE LAST DOSE GIVEN: DATE: TODAY TIME: AM NEXT DOSE DUE: DATE: TOMORROW TIME: AM 10/08/15 Aspirin (ASPIRIN) 325 Mg Tablet, 1 TAB PO DAILY for HEART HEALTH LAST DOSE GIVEN: DATE: TODAY TIME: AM NEXT DOSE DUE: DATE: TOMORROW TIME: AM 05/24/14 Alprazolam (ALPRAZOLAM) 0.25 Mg Tablet, 1 TAB PO HS for ANXIETY LAST DOSE GIVEN: DATE: TODAY TIME: AM NEXT DOSE DUE: DATE: TODAY TIME: PM 05/24/14 Amlodipine Besylate (AMLODIPINE BESYLATE) 10 Mg Tablet, 1 TAB PO DAILY for HIGH BLOOD PRESSURE LAST DOSE GIVEN: DATE: TODAY TIME: AM NEXT DOSE DUE: DATE: TOMORROW TIME: AM 05/24/14 MANDY CRAIG MD Oct 09, 2019 10:32
[2019-10-09 10:39] VITALS: BP 111/73
--- NOTE | 2019-10-09 13:42 | NUR ---
Discharge Note: RENATO BOYLE J1 [facility] Discharge instructions and discharge home medications reviewed with Patient and a copy given. All questions have been answered and understanding verbalized. The following instructions and handouts were given: doxyclcline. Discontinued lines and drains: IV in right wrist D/C. Tip in tact, pressure dressing applied. Patient discharged to HOME WITH OUT PATIENT OT SERVICES SET UP. ACCOMPANIED BY IN PV.
== END 2019-10-09 13:43 | disposition home health service (06) | DRG 190 ==
LOC: ER 22:29 → 1 SOUTH 10-07 01:19
PROVIDERS: ADMIT Family Medicine; ATTEND Family Medicine
DX: J44.0 Chronic obstructive pulmonary disease with (acute) lower respiratory infection (principal); J18.9 Pneumonia, unspecified organism; J98.11 Atelectasis; Z68.41 Body mass index [BMI] 40.0-44.9, adult; J44.1 Chronic obstructive pulmonary disease with (acute) exacerbation; E78.00 Pure hypercholesterolemia, unspecified; F03.90 Unspecified dementia, unspecified severity, without behavioral disturbance, psychotic disturbance, mood disturbance, and anxiety; I11.0 Hypertensive heart disease with heart failure; I50.9 Heart failure, unspecified; F10.10 Alcohol abuse, uncomplicated; F41.9 Anxiety disorder, unspecified; M19.90 Unspecified osteoarthritis, unspecified site; J20.9 Acute bronchitis, unspecified; E66.01 Morbid (severe) obesity due to excess calories; D63.1 Anemia in chronic kidney disease; E11.65 Type 2 diabetes mellitus with hyperglycemia; Z79.4 Long term (current) use of insulin; Z87.891 Personal history of nicotine dependence; Z82.3 Family history of stroke; Z80.9 Family history of malignant neoplasm, unspecified; Z88.8 Allergy status to other drugs, medicaments and biological substances
CPT/HCPCS: 36415; 71045; 80048; 80076; 82947; 83605; 84145; 85025; 87040; 87804; 94640; 96361; 96365; J0696; J1650; J1956; J7613; J7620; 97110; 97116; 97530; 99285-25; J7030

== ENCOUNTER 2021-03-01 11:35 | Inpatient (IN) | payer MEDICARE ==
[~2021-03-01] VITALS: Ht 165.1 cm; Wt 108.0 kg
[~2021-03-01 11:35] MED LIST changes: +AMLO-187 PO; -AMLO10TA8 PO; +DOXY100C2 PO; -LISI-334 PO; +LISI20TA18 PO; -VANC1VIA3 MC; +VANC1VIA34 MC
--- NOTE | 2021-03-01 11:36 | NUR ---
PATIENT ARRIVED TO UNIT VIA EMS. PT IS ORIENTED TO ROOM AND PROCEEDURES. PT IS ACCOMPANIED BY . PT IS STABLE AT TIME OF ADMISISON. PT IS OFFERED FOOD AND DRINK AND ACCEPTS. PT IS RESTING COMFORTABLY IN BED AT THIS TIME. DR CRAIG NOTIFIED OF ADMISSION. WILL CONTINUE TO MONITOR.
[2021-03-01 12:09] VITALS: BP 157/78
[2021-03-01] MEDS ORDERED: ATEN50TA PO (12:53)
[2021-03-01] MEDS: FUROSEMIDE 40 MG TABLET PO SCH (13:00)
[2021-03-01 13:25] LABS: BASO # 0.1 x10^3/uL (0.0-0.2); BASO % 1 % (0-3); EOS # 0.4 x10^3/uL (0.0-0.7); EOS % 3 % (0-3); HEMOGLOBIN 12.9 g/dL (13.0-17.5); LYMPH # 1.8 x10^3/uL (1.0-4.8); LYMPH % 16 % (24-48); MEAN CORPUSCULAR HEMOGLOBIN 30 pg (25-35); MEAN CORPUSCULAR HGB CONC 33 g/dL (31-37); MEAN CORPUSCULAR VOLUME 91 fL (79-100); MONO % 9 % (0-9); NEUT % 71 % (31-73); PLATELET COUNT 261 x10^3/uL (140-400); RED BLOOD COUNT 4.27 x10^6/uL (4.30-5.70); RED CELL DISTRIBUTION WIDTH 12.9 % (11.5-14.5); WHITE BLOOD COUNT 11.3 x10^3/uL (4.0-11.0)
[2021-03-01 13:40] LABS: ALBUMIN 3.7 g/dL (3.4-5.0); CALCIUM 8.6 mg/dL (8.5-10.1); CREATININE 1.7 mg/dL (0.7-1.3); GFR 38.7; POTASSIUM 4.2 mmol/L (3.5-5.1); TOTAL PROTEIN 7.4 g/dL (6.4-8.2)
[2021-03-01 15:57] VITALS: BP 185/72
--- NOTE | 2021-03-01 16:04 | RAD ---
EXAM: XR CHEST 2V 03/01/2021 2:35 PM CLINICAL INDICATION: Shortness of breath COMPARISON: Chest radiograph 10/06/2019 TECHNIQUE: PA and lateral views of the chest FINDINGS: The cardiomediastinal silhouette is stable. Lungs are adequately expanded. There is calcif ied granuloma in the right lung. Stable mild chronic interstitial opacities in the bases. No consolid ation, pleural effusion, or pneumothorax. Unchanged degenerative disc disease in the thoracic spine. IMPRESSION: No acute cardiopulmonary abnormality. Electronically signed by: Moon Juan MD (03/01/2021 4:02 PM) [id number]
[2021-03-01 17:06] LABS: CLARITY,URINE CLEAR; COLOR,URINE YELLOW
[2021-03-01 17:07] LABS: BACTERIA,URINE 0 /HPF (0-FEW); BILIRUBIN,URINE NEG (NEG); GLUCOSE,URINE NEG (NEG); NITRITE,URINE NEG (NEG); RBC,URINE 20-40 /HPF (0-2); SQUAMOUS EPITHELIAL CELL,UR OCC /LPF; UROBILINOGEN,URINE 0.2 mg/dL (0.2 mg/dL); WBC,URINE 0 /HPF (0-4)
[2021-03-01] MEDS: amLODIPine BESYLATE 10 MG TABLET PO SCH (18:00)
--- NOTE | 2021-03-01 18:05 | CONS ---
DATE OF CONSULTATION: 03/01/2021 REASON FOR CONSULTATION: Dyspnea. HISTORY OF PRESENT ILLNESS: The patient is a pleasant 85-year-old man who has some mild dementia and past medical history as noted below, who presents to the hospital because of worsening shortness of breath. He was seen in the office by his primary care physician and referred to the hospital due to hypoxia. There was concern for some possible pneumonia. His initial chest x-ray is unremarkable. The patient currently denies any syncope, palpitations, orthopnea or PND, but does have exertional dyspnea and chronic COPD, and he wears oxygen at home, usually in the afternoons. PAST MEDICAL HISTORY: 1. COPD. 2. Morbid obesity. 3. Presumed diastolic heart failure. SOCIAL HISTORY: The patient lives at home with his . No alcohol, tobacco or illicit drug use. FAMILY HISTORY: Noncontributory. REVIEW OF SYSTEMS: Negative for 10 out of 14 systems reviewed, unless otherwise mentioned above in HPI. ALLERGIES: No known drug allergies. CURRENT CARDIOVASCULAR MEDICATIONS: As per medication administration record. PHYSICAL EXAMINATION: VITAL SIGNS: Stable. He was initially hypertensive with systolic blood pressures above 200, but currently he is more normotensive. HEAD AND NECK: Unremarkable. HEART: Regular rate and rhythm. LUNGS: Decreased breath sounds bilaterally. ABDOMEN: Obese, protuberant, nontender, nondistended. EXTREMITIES: No lower extremity edema with diminished 1+ pedal pulses and 2+ radial pulses. NEUROLOGIC: No focal deficits. MUSCULOSKELETAL: No obvious trauma. LABORATORY AND DIAGNOSTIC DATA: Chest x-ray is unremarkable. EKG is unremarkable. Cardiac enzymes are negative and BNP is within normal limits. IMPRESSION: 1. Chronic obstructive pulmonary disease exacerbation. 2. Morbid obesity. 3. Dyspnea, likely mostly related to lung disease less likely be diastolic heart failure. RECOMMENDATION: Planned for outpatient echocardiogram and continue treatment of his pulmonary disease. Consider referral to outpatient pulmonary clinic. Thank you for this consultation. EUFEMIA DR: Kathryn TID: [id number]
[2021-03-01] MEDS: IPRATRPIUM/ALBUTEROL 0.5/2.5MG 3 ML NEBU. NEB SCH (19:23)
[2021-03-01 19:56] VITALS: BP 161/77
--- NOTE | 2021-03-01 20:10 | EKG ---
[address] [address] Test Date: 2021-03-01 Test Time: 20:00:03 Pat Name: RENATO BOYLE Department: Room: 105 A Gender: M [employer] Car [employer]: : [id number] Requested By: MANDY CRAIG Order Number: [id number] Reading MD: Measurements Intervals [place] Rate: 87 P: -23 CA: 176 QRS: 12 QRSD: 78 T: 20 QT: 376 QTc: 459 Interpretive Statements SINUS RHYTHM R-S TRANSITION ZONE IN V LEADS DISPLACED TO THE RIGHT NO SPECIFIC ECG ABNORMALITIES RI6.01 No previous ECG available for comparison
[2021-03-01] MEDS: OXYMETAZOLINE 0.05% NASAL SPRAY 30ML BOTTLE. NS PRN (21:28)
[2021-03-01] MEDS: traMADol 50 MG TABLET PO PRN (21:32)
[2021-03-01 22:43] VITALS: BP 132/73
[2021-03-02] MEDS: IPRATRPIUM/ALBUTEROL 0.5/2.5MG 3 ML NEBU. NEB SCH ×3 (04:56→20:00)
--- NOTE | 2021-03-02 06:22 | NUR ---
PT uncomfortable throughout the night, waking hourly but falling back to sleep shortly. PT complaining of neck discomfort. PT repositioned multiple times. PT took medications whole with water.
[2021-03-02 06:36] LABS: BASO # 0.1 x10^3/uL (0.0-0.2); BASO % 1 % (0-3); EOS # 0.4 x10^3/uL (0.0-0.7); EOS % 4 % (0-3); HEMATOCRIT 38.5 % (39.0-53.0); HEMOGLOBIN 12.8 g/dL (13.0-17.5); LYMPH # 2.6 x10^3/uL (1.0-4.8); LYMPH % 22 % (24-48); MEAN CORPUSCULAR HEMOGLOBIN 30 pg (25-35); MEAN CORPUSCULAR HGB CONC 33 g/dL (31-37); MEAN CORPUSCULAR VOLUME 91 fL (79-100); MONO # 1.7 x10^3/uL (0.0-1.1); MONO % 14 % (0-9); NEUT # 7.2 x10^3uL (1.8-7.7); NEUT % 60 % (31-73); PLATELET COUNT 250 x10^3/uL (140-400); RED BLOOD COUNT 4.23 x10^6/uL (4.30-5.70); RED CELL DISTRIBUTION WIDTH 12.9 % (11.5-14.5)
[2021-03-02 06:45] LABS: CALCIUM 8.5 mg/dL (8.5-10.1); CREATININE 1.6 mg/dL (0.7-1.3); GFR 41.5; POTASSIUM 3.8 mmol/L (3.5-5.1)
[2021-03-02 07:46] VITALS: BP 131/47
--- NOTE | 2021-03-02 08:36 | PDOC ---
CARDIO Progress Notes Date & Time Date of Service DATE: 03/02/21 TIME: 08:29 Time of Evaluation 08:29 Subjective Notes No Chest, palpitations, dizziness. Not more SOA. Vitals Vitals Vital Signs Date Time Temp Pulse Resp B/P (MAP) Pulse Ox O2 Delivery O2 Flow Rate FiO2 03/02/21 07:46 98.3 86 20 131/47 (75) 94 Nasal Cannula 2.0 Weight Weight [ ] Input and Output I.O. Intake and Output 03/02/21 07:00 Intake Total 480 ml Output Total 1550 ml Balance -1070 ml Intake Oral 480 ml Output Urine Total 1550 ml Laboratory Labs Laboratory Tests Test 03/01/21 12:52 03/01/21 13:12 03/01/21 15:20 03/01/21 16:04 White Blood Count 11.3 x10^3/uL (4.0-11.0) Red Blood Count 4.27 x10^6/uL (4.30-5.70) Hemoglobin 12.9 g/dL (13.0-17.5) Hematocrit 39.0 % (39.0-53.0) Mean Corpuscular Volume 91 fL (79-100) Mean Corpuscular Hemoglobin 30 pg (25-35) Mean Corpuscular Hemoglobin Concent 33 g/dL (31-37) Red Cell Distribution Width 12.9 % (11.5-14.5) Platelet Count 261 x10^3/uL (140-400) Neutrophils (%) (Auto) 71 % (31-73) Lymphocytes (%) (Auto) 16 % (24-48) Monocytes (%) (Auto) 9 % (0-9) Eosinophils (%) (Auto) 3 % (0-3) Basophils (%) (Auto) 1 % (0-3) Neutrophils # (Auto) 8.0 x10^3uL (1.8-7.7) Lymphocytes # (Auto) 1.8 x10^3/uL (1.0-4.8) Monocytes # (Auto) 1.0 x10^3/uL (0.0-1.1) Eosinophils # (Auto) 0.4 x10^3/uL (0.0-0.7) Basophils # (Auto) 0.1 x10^3/uL (0.0-0.2) Sodium Level 145 mmol/L (136-145) Potassium Level 4.2 mmol/L (3.5-5.1) Chloride Level 107 mmol/L (98-107) Carbon Dioxide Level 26 mmol/L (21-32) Anion Gap 12 (6-14) Blood Urea Nitrogen 29 mg/dL (8-26) Creatinine 1.7 mg/dL (0.7-1.3) Estimated GFR (Cockcroft-Gault) 38.7 BUN/Creatinine Ratio 17 (6-20) Glucose Level 146 mg/dL (70-99) Calcium Level 8.6 mg/dL (8.5-10.1) Total Bilirubin 1.0 mg/dL (0.2-1.0) Aspartate Amino Transf (AST/SGOT) 20 U/L (15-37) Alanine Aminotransferase (ALT/SGPT) 24 U/L (16-63) Alkaline Phosphatase 75 U/L (46-116) Total Protein 7.4 g/dL (6.4-8.2) Albumin 3.7 g/dL (3.4-5.0) Albumin/Globulin Ratio 1.0 (1.0-1.7) Lactic Acid Level 2.5 mmol/L (0.4-2.0) Creatine Kinase 132 U/L (39-308) Troponin I Quantitative < 0.017 ng/mL (0-0.055) PF-Smc-C-Type Natriuretic Peptide 185 pg/mL (0-449) Urine Collection Type Unknown Urine Color Yellow Urine Clarity Clear Urine pH 5.5 Urine Specific [place] 1.015 Urine Protein Neg (NEG-TRACE) Urine Glucose (UA) Neg mg/dL (NEG) Urine Ketones (Stick) Neg mg/dL (NEG) Urine Blood Large (NEG) Urine Nitrite Neg (NEG) Urine Bilirubin Neg (NEG) Urine Urobilinogen Dipstick 0.2 mg/dL (0.2 mg/dL) Urine Leukocyte Esterase Neg (NEG) Urine RBC 20-40 /HPF (0-2) Urine WBC 0 /HPF (0-4) Urine Squamous Epithelial Cells Occ /LPF Urine Bacteria 0 /HPF (0-FEW) Test 03/01/21 17:30 03/02/21 06:11 03/02/21 07:27 Lactic Acid Level 1.6 mmol/L (0.4-2.0) White Blood Count 12.0 x10^3/uL (4.0-11.0) Red Blood Count 4.23 x10^6/uL (4.30-5.70) Hemoglobin 12.8 g/dL (13.0-17.5) Hematocrit 38.5 % (39.0-53.0) Mean Corpuscular Volume 91 fL (79-100) Mean Corpuscular Hemoglobin 30 pg (25-35) Mean Corpuscular Hemoglobin Concent 33 g/dL (31-37) Red Cell Distribution Width 12.9 % (11.5-14.5) Platelet Count 250 x10^3/uL (140-400) Neutrophils (%) (Auto) 60 % (31-73) Lymphocytes (%) (Auto) 22 % (24-48) Monocytes (%) (Auto) 14 % (0-9) Eosinophils (%) (Auto) 4 % (0-3) Basophils (%) (Auto) 1 % (0-3) Neutrophils # (Auto) 7.2 x10^3uL (1.8-7.7) Lymphocytes # (Auto) 2.6 x10^3/uL (1.0-4.8) Monocytes # (Auto) 1.7 x10^3/uL (0.0-1.1) Eosinophils # (Auto) 0.4 x10^3/uL (0.0-0.7) Basophils # (Auto) 0.1 x10^3/uL (0.0-0.2) D-Dimer ([place]) 2.04 mg/L (0.00-0.50) Sodium Level 144 mmol/L (136-145) Potassium Level 3.8 mmol/L (3.5-5.1) Chloride Level 107 mmol/L (98-107) Carbon Dioxide Level 28 mmol/L (21-32) Anion Gap 9 (6-14) Blood Urea Nitrogen 25 mg/dL (8-26) Creatinine 1.6 mg/dL (0.7-1.3) Estimated GFR (Cockcroft-Gault) 41.5 Glucose Level 152 mg/dL (70-99) Calcium Level 8.5 mg/dL (8.5-10.1) Glucose (Fingerstick) 155 mg/dL (70-99) Physical Exams HEENT: Neck Supple W Full Motion Chest: Symmetric Lungs: Clear to Auscultation Heart: RRR Abdomen: Soft N/T Extremities: Other (trace bilateral LE edema ) Neurology: alert, oriented, follow commands, other (forgetful ) Assessment Assessment 1. Acute respiratory failure with AE COPD 2. Chronic diastolic CHF; NT Pro BNP 185. CXR without vascular congestion. 3. Accelerated hypertension; now controlled 4. Hyperlipidemia 5. Diabetes, II 6. CKD; Cr stable per review 7. TERRELL 8. Mild dementia Recommendations Outpatient echo arranged to assess LV systolic function Ongoing lung optimization Oral Lasix Continue current antiHTN therapy Supportive care Follow up in our office as scheduled SARAH BUCK APRN Mar 02, 2021 08:36
[2021-03-02] MEDS: LISINOPRIL 20 MG TABLET PO SCH (08:46)
[2021-03-02] MEDS: amLODIPine BESYLATE 10 MG TABLET PO SCH (08:47)
[2021-03-02] MEDS: ATENOLOL 50 MG TABLET PO SCH (08:48)
[2021-03-02] MEDS: FUROSEMIDE 40 MG TABLET PO SCH (08:48)
[2021-03-02] MEDS: ASPIRIN 325 MG TABLET PO SCH (08:49)
[2021-03-02] MEDS: GLIMEPIRIDE 2 MG TABLET PO SCH (08:49)
[2021-03-02] MEDS ORDERED: amLODIPine BESYLATE 10 MG TABLET PO SCH (09:00)
[2021-03-02] MEDS ORDERED: FUROSEMIDE 40 MG TABLET PO SCH (09:00)
[2021-03-02] MEDS ORDERED: FUROSEMIDE 40 MG/4 ML VIAL IVP ONE (10:00)
[2021-03-02 11:09] VITALS: BP 145/64
--- NOTE | 2021-03-02 11:23 | RAD ---
CT HEAD INDICATION: Fall, syncope COMPARISON: None Available. Exposure: One or more of the following individualized dose reduction techniques were utilized for thi s examination: 1. Automated exposure control 2. Adjustment of the mA and/or kV according to patient size 3. Use of iterative reconstruction technique TECHNIQUE: 5 mm contiguous axial images were obtained from the skull base to the vertex in both bone and soft tissue algorithm. FINDINGS: No abnormal attenuation within the brain parenchyma. No evidence of acute intracranial hemorrhage. No extra-axial fluid collections. No mass effect or midline shift. Ventricular size is appropriate. Basal cisterns are patent. No fractures identified.Martinez-white differentiation is preserved.Globes and orbits are within normal l imits. Paranasal sinuses and mastoid air cells are clear. IMPRESSION: No acute intracranial findings. Electronically signed by: Teodoro Sharma MD (03/02/2021 11:21 AM) [id number]
[2021-03-02] MEDS ORDERED: DEXTROSE 50% 25 GM / 50ML DISP.SYRIN. IV PRN (11:30)
[2021-03-02] MEDS ORDERED: ONDANSETRON PF 4 MG/2 ML VIAL. IVP PRN (12:00)
[2021-03-02] MEDS: INSULIN LISPRO 300 UNITS/3 ML VIAL. SQ SCH ×2 (12:09→16:54)
[2021-03-02] MEDS: DICLOFENAC SODIUM 1% TOPICAL GEL 100GM TUBE. TP SCH ×2 (14:00→20:23)
[2021-03-02 14:21] VITALS: BP 113/61
[2021-03-02] MEDS: ACETAMINOPHEN 500 MG TABLET PO PRN (16:58)
--- NOTE | 2021-03-02 18:06 | NUR ---
Pts reported "he has a wound on his bottom" This nurse assessed pt bottom and observed no wound however slight blanchable redness. barrier cream applied.
[2021-03-02 19:00] VITALS: BP 118/63
[2021-03-02] MEDS: traMADol 50 MG TABLET PO PRN (20:24)
--- NOTE | 2021-03-02 21:44 | PN ---
SUBJECTIVE: An 85-year-old male in with increased shortness of breath, change in mental status, general lethargy, trouble breathing. The patient appears to have some form of congestive heart failure requiring additional oxygen to additional diuresis. The patient has been feeling as an outpatient becoming more confused and disoriented at home as well as having severe degenerative arthritis to his hands and knees and difficulty for him moving. PT, OT to be scheduled for this gentleman. The patient otherwise is alert. He is a little bit confused as far as dates go. The patient otherwise has very pleasant personality. The patient otherwise notes some shortness of breath, no chest pain. Denies any nausea, vomiting, melena, hematochezia, hematemesis presently, does have swelling. He has marked disfigurement to his fingers and marked degenerative changes with marked hypertrophy to his knees. OBJECTIVE: GENERAL: Otherwise, the patient is alert x1. Speech fluent. LUNGS: Diminished with crackles noted in the bases. CARDIOVASCULAR: Regular sinus rhythm. ABDOMEN: Protuberant, soft, nontender. MUSCULOSKELETAL: Hypertrophy to the knees and disfigurement to the fingers. EXTREMITIES: +2 pitting edema. Pulses noted distally. NEUROLOGIC: Alert. EKG basically stable. We will go ahead and continue to monitor the patient accordingly and make further evaluation. Increase Lasix, breathing treatments. Monitor his blood sugars and make further assessment on his renal function as well. IMPRESSION: Acute on top of chronic diastolic heart failure, chronic kidney disease stage IIIB, acute mental status change, elevated lactic acid, hematuria, degenerative arthritis of the hands, degenerative arthritis of the knees. Continue with aggressive PT, OT and adjust his medications along with Cardiology as indicated. GAVIN DR: Kenny TID: [id number]
[2021-03-02 23:04] VITALS: BP 94/61
[2021-03-03] MEDS: IPRATRPIUM/ALBUTEROL 0.5/2.5MG 3 ML NEBU. NEB SCH ×3 (05:12→21:19)
[2021-03-03 05:30] VITALS: BP 118/67
[2021-03-03] MEDS: traMADol 50 MG TABLET PO PRN ×3 (06:32→20:37)
[2021-03-03] MEDS ORDERED: traMADol 50 MG TABLET PO PRN (07:45)
[2021-03-03] MEDS: INSULIN LISPRO 300 UNITS/3 ML VIAL. SQ SCH ×3 (08:00→17:00)
[2021-03-03] MEDS: ASPIRIN 325 MG TABLET PO SCH (08:35)
[2021-03-03] MEDS: GLIMEPIRIDE 2 MG TABLET PO SCH (08:36)
[2021-03-03] MEDS: LISINOPRIL 20 MG TABLET PO SCH (08:36)
[2021-03-03] MEDS: LORazepam 1 MG TABLET PO SCH (08:36)
[2021-03-03] MEDS: FUROSEMIDE 40 MG TABLET PO SCH (08:36)
[2021-03-03] MEDS: ATENOLOL 50 MG TABLET PO SCH (08:37)
[2021-03-03] MEDS: AZITHROMYCIN 250 MG TABLET. PO SCH (08:37)
[2021-03-03] MEDS: amLODIPine BESYLATE 10 MG TABLET PO SCH (08:37)
[2021-03-03] MEDS: OXYMETAZOLINE 0.05% NASAL SPRAY 30ML BOTTLE. NS PRN ×2 (08:37→20:36)
[2021-03-03] MEDS: DICLOFENAC SODIUM 1% TOPICAL GEL 100GM TUBE. TP SCH ×3 (08:42→20:37)
[2021-03-03 10:06] LABS: BASO # 0.1 x10^3/uL (0.0-0.2); BASO % 0 % (0-3); EOS # 0.1 x10^3/uL (0.0-0.7); EOS % 0 % (0-3); HEMATOCRIT 37.2 % (39.0-53.0); HEMOGLOBIN 12.4 g/dL (13.0-17.5); LYMPH # 0.9 x10^3/uL (1.0-4.8); LYMPH % 6 % (24-48); MEAN CORPUSCULAR HEMOGLOBIN 30 pg (25-35); MEAN CORPUSCULAR HGB CONC 33 g/dL (31-37); MEAN CORPUSCULAR VOLUME 91 fL (79-100); MONO # 1.9 x10^3/uL (0.0-1.1); MONO % 12 % (0-9); NEUT # 12.4 x10^3uL (1.8-7.7); NEUT % 81 % (31-73); PLATELET COUNT 240 x10^3/uL (140-400); RED CELL DISTRIBUTION WIDTH 12.9 % (11.5-14.5); WHITE BLOOD COUNT 15.3 x10^3/uL (4.0-11.0)
[2021-03-03 10:09] LABS: CALCIUM 8.3 mg/dL (8.5-10.1); CREATININE 2.3 mg/dL (0.7-1.3); GFR 27.3; POTASSIUM 4.7 mmol/L (3.5-5.1)
[2021-03-03] MEDS ORDERED: BISACODYL 10 MG SUPP.RECT PR PRN (10:30)
[2021-03-03 10:41] VITALS: BP 127/58
--- NOTE | 2021-03-03 13:16 | NUR ---
Pt back in room from radiology. Pt's requesting pt's SpO2 be checked "to see how it is after all his moving around". This nurse in room - SpO2 96% on 3L oxygen via nasal cannula, respiratory rate of 24 and heart rate of 56. Pt resting in recliner with no requests at this time.
--- NOTE | 2021-03-03 13:53 | RAD ---
Lung scan 03/03/2021 CLINICAL HISTORY: Shortness of breath. Elevated d-dimer. TECHNIQUE: After the administration of 33.0 mCi of xenon gas, ventilation images of both lungs were o btained using the gamma camera. After the intravenous administration of 5.04 mCi of technetium 99m MA A, perfusion images of both lungs were obtained using the gamma camera. FINDINGS: Comparison is made to PA and lateral chest radiographs dated 03/01/2021. These demonstrate m ild cardiomegaly. No acute pulmonary infiltrate is seen. Slightly heterogeneous ventilation and perfusion of the radionuclides throughout both lungs is seen o n the ventilation and perfusion images. No unmatched perfusion defect is noted. These findings are co nsistent with a low probability study for pulmonary embolism. IMPRESSION: Low probability study. Electronically signed by: Angel Moreno MD (03/03/2021 1:50 PM) [id number]
[2021-03-03 15:48] VITALS: BP 106/67
[2021-03-03] MEDS: ACETAMINOPHEN 500 MG TABLET PO PRN (17:24)
[2021-03-03 19:00] VITALS: BP 142/55
[2021-03-03 23:00] VITALS: BP 96/59
--- NOTE | 2021-03-04 02:37 | PN ---
SUBJECTIVE: The patient came in with increased shortness of breath, change in mental status, general lethargy, trouble breathing. The patient has been making some basic progress with diuresis and aggressive pulmonary toilet as well as physical and occupational therapy. The patient says he feels a little better, but still very hypoxic requiring continuous oxygen 2.5 liters at 91. OBJECTIVE: VITAL SIGNS: Blood pressure 120/60, respiratory rate 20, pulse 60, afebrile. GENERAL: The patient is alert and oriented. Baseline for him. LUNGS: Diminished, poor movement of air, but basically clear than it has been. CARDIOVASCULAR: Regular sinus rhythm. We will continue to monitor the patient on his breathing problems and make further assessment on that as well. He is scheduled to go to a situation with mcc placement. IMPRESSION: Acute on top of chronic diastolic heart failure, chronic kidney disease stage IIIB, acute mental status change, elevated lactic acid, hematuria, degenerative arthritis of the hands, degenerative arthritis of the knees, generalized weakness, mild dementia. PLAN: As above. GAVIN DR: Kenny TID: [id number]
[2021-03-04 05:29] LABS: BASO # 0.1 x10^3/uL (0.0-0.2); BASO % 1 % (0-3); EOS # 0.3 x10^3/uL (0.0-0.7); EOS % 3 % (0-3); HEMATOCRIT 35.1 % (39.0-53.0); HEMOGLOBIN 11.8 g/dL (13.0-17.5); LYMPH # 1.7 x10^3/uL (1.0-4.8); LYMPH % 16 % (24-48); MEAN CORPUSCULAR HEMOGLOBIN 31 pg (25-35); MEAN CORPUSCULAR HGB CONC 34 g/dL (31-37); MEAN CORPUSCULAR VOLUME 91 fL (79-100); MONO # 1.7 x10^3/uL (0.0-1.1); MONO % 16 % (0-9); NEUT # 7.1 x10^3uL (1.8-7.7); NEUT % 65 % (31-73); PLATELET COUNT 214 x10^3/uL (140-400); RED BLOOD COUNT 3.87 x10^6/uL (4.30-5.70)
[2021-03-04] MEDS: IPRATRPIUM/ALBUTEROL 0.5/2.5MG 3 ML NEBU. NEB SCH ×3 (05:29→21:55)
[2021-03-04 05:43] LABS: CALCIUM 8.1 mg/dL (8.5-10.1); GFR 20.1; POTASSIUM 4.6 mmol/L (3.5-5.1)
[2021-03-04 07:50] VITALS: BP 114/76
[2021-03-04] MEDS: INSULIN LISPRO 300 UNITS/3 ML VIAL. SQ SCH ×3 (08:00→17:00)
[2021-03-04] MEDS: ASPIRIN 325 MG TABLET PO SCH (08:25)
[2021-03-04] MEDS: ATENOLOL 50 MG TABLET PO SCH (08:25)
[2021-03-04] MEDS: LORazepam 1 MG TABLET PO SCH (08:25)
[2021-03-04] MEDS: DICLOFENAC SODIUM 1% TOPICAL GEL 100GM TUBE. TP SCH ×3 (08:26→21:00)
[2021-03-04] MEDS: GLIMEPIRIDE 2 MG TABLET PO SCH (08:26)
[2021-03-04] MEDS: amLODIPine BESYLATE 10 MG TABLET PO SCH (08:26)
[2021-03-04] MEDS: AZITHROMYCIN 250 MG TABLET. PO SCH (08:26)
[2021-03-04] MEDS: FUROSEMIDE 40 MG TABLET PO SCH (08:26)
[2021-03-04] MEDS: LISINOPRIL 20 MG TABLET PO SCH (08:26)
[2021-03-04] MEDS: LACTOBACILLUS RHAMNOSUS GG 1 CAPSULE. PO SCH ×2 (09:00→21:40)
[2021-03-04] MEDS: ACETAMINOPHEN 500 MG TABLET PO PRN (10:30)
[2021-03-04 10:47] VITALS: BP 145/70
[2021-03-04 16:39] VITALS: BP 124/70
[2021-03-04 18:45] VITALS: BP 127/72
--- NOTE | 2021-03-04 21:32 | PN ---
SUBJECTIVE: An 85-year-old male came in with multiple medical problems and issues. The patient has been having problems with breathing, congestive heart failure. He had failed outpatient therapy and as a result of this, the patient was somewhat confused, disoriented, decreased mental status and was admitted for acute on top of chronic congestive heart failure as well as severe degenerative arthritis of his extremities as well as severe weakness. The patient was admitted and placed on PT, OT and was diuresed in the usual fashion and made good progress along that line. OBJECTIVE: VITAL SIGNS: Last blood pressure 140/70, respiratory rate 20, pulse 62, afebrile. His last weight obtained was not in the chart. GENERAL: The patient made good progress during his hospitalization. LUNGS: Diminished but basically clearer than they have been. There has been marked improvement in the respiratory effort of this gentleman. CARDIOVASCULAR: Regular sinus rhythm, S1, S2. ABDOMEN: Soft, protuberant. EXTREMITIES: No clubbing or cyanosis. Just trace edema. NEUROLOGIC: Speech fluent, spontaneous, appropriate. Cranial nerves 2-12 grossly intact. IMPRESSION: Acute on top of chronic diastolic heart failure, chronic kidney disease stage IIIB, acute mental status changes, elevated lactic acid, hematuria, degenerative arthritis of the joints, generalized weakness, dementia. PLAN: Continue with same and will be going out to [facility] here shortly in a day or two. GAVIN DR: Kenny TID: [id number]
[2021-03-04] MEDS: traMADol 50 MG TABLET PO PRN (21:41)
[2021-03-04 22:41] VITALS: BP 136/72
[2021-03-05] MEDS: IPRATRPIUM/ALBUTEROL 0.5/2.5MG 3 ML NEBU. NEB SCH ×3 (05:00→19:37)
[2021-03-05 05:10] VITALS: BP 125/66
--- NOTE | 2021-03-05 06:07 | NUR ---
Pt slept off and on all night. He woke up increasingly wheezy through the night, intermittently coughing to clear secretions. RT changed his NC to venturi mask at 7L. Will continue to monitor.
[2021-03-05] MEDS: INSULIN LISPRO 300 UNITS/3 ML VIAL. SQ SCH ×3 (08:04→17:26)
[2021-03-05] MEDS ORDERED: MAGNESIUM HYDROXIDE 2,400 MG/30 ML ORAL.SUSP. PO ONE (08:15)
--- NOTE | 2021-03-05 08:19 | RAD ---
EXAM: Chest, single view. HISTORY: Increasing oxygen demand. COMPARISON: 03/01/2021 FINDINGS: A frontal view of the chest is obtained. There are stable chronic appearing interstitial ch anges. There is no consolidation, pleural effusion or pneumothorax. There are few calcified granuloma s. There is a stable cardiac silhouette. IMPRESSION: Stable chronic appearing interstitial changes. Electronically signed by: Maegan Linda MD (03/05/2021 8:17 AM) [id number]
[2021-03-05] MEDS: ASPIRIN 325 MG TABLET PO SCH (08:28)
[2021-03-05] MEDS: LACTOBACILLUS RHAMNOSUS GG 1 CAPSULE. PO SCH ×2 (08:28→21:00)
[2021-03-05] MEDS: GLIMEPIRIDE 2 MG TABLET PO SCH (08:29)
[2021-03-05] MEDS: AZITHROMYCIN 250 MG TABLET. PO SCH (08:29)
[2021-03-05] MEDS: LISINOPRIL 20 MG TABLET PO SCH (08:30)
[2021-03-05] MEDS: FUROSEMIDE 40 MG TABLET PO SCH (08:30)
[2021-03-05] MEDS: LORazepam 1 MG TABLET PO SCH (08:31)
[2021-03-05] MEDS: ATENOLOL 50 MG TABLET PO SCH (08:31)
[2021-03-05] MEDS: amLODIPine BESYLATE 10 MG TABLET PO SCH (08:31)
[2021-03-05] MEDS: DICLOFENAC SODIUM 1% TOPICAL GEL 100GM TUBE. TP SCH ×3 (08:37→21:00)
[2021-03-05 11:15] VITALS: BP 117/67
[2021-03-05] MEDS ORDERED: medroxyPROGESTERone 5 MG TABLET PO SCH (12:15)
[2021-03-05] MEDS ORDERED: IPRATRPIUM/ALBUTEROL 0.5/2.5MG 3 ML NEBU. NEB SCH (14:00)
[2021-03-05] MEDS: methylPREDNISolone SOD SUCC PF 40 MG/ML VIAL. IV SCH (14:49)
[2021-03-05 15:13] VITALS: BP 115/70
[2021-03-05] MEDS ORDERED: ACETAMINOPHEN 500 MG TABLET PO SCH (16:00)
--- NOTE | 2021-03-05 16:00 | NUR ---
PT'S REQUESTED OUTSIDE HOSPITAL DNR FORM, WILL PASS ON TO [facility] AND HAVE DR. CRAIG SIGN PAPERWORK.
[2021-03-05 18:57] VITALS: BP 148/68
[2021-03-05 23:01] VITALS: BP 121/69
--- NOTE | 2021-03-06 00:23 | PN ---
SUBJECTIVE: The patient with acute respiratory failure. The patient has been short of breath. Needs continued rehabilitation care. The patient had a repeat chest x-ray which showed stable findings, ____ just chronic changes noted in his lungs. The patient will continue getting some DuoNeb treatments and continue on some antibiotic therapy and make further evaluation on him as indicated. OBJECTIVE: VITAL SIGNS: Otherwise, blood pressure 117/67, respiratory rate 22, pulse 78, still running low-grade temperature. He is on Zithromax. We will start him on Rocephin as well and he has had that before and we will see if that does ____ help him with his overall situation. IMPRESSION: Acute respiratory failure, acute exacerbation of chronic obstructive pulmonary disease with bronchitis, change in mental status, severe Alzheimer dementia type. PLAN: As above. VICTOR HUGO/CHANDLER/FLORECITA DR: Kenny TID: [id number]
[2021-03-06 05:55] VITALS: BP 116/71
[2021-03-06] MEDS: IPRATRPIUM/ALBUTEROL 0.5/2.5MG 3 ML NEBU. NEB SCH ×2 (06:41→09:52)
--- NOTE | 2021-03-06 06:41 | NUR ---
WE WERE BUSY IN THE ER, WAS NOT ABLE TO GET TO THIS, INFORMED NURSING
[2021-03-06] MEDS: OXYMETAZOLINE 0.05% NASAL SPRAY 30ML BOTTLE. NS PRN (07:50)
[2021-03-06] MEDS: ASPIRIN 325 MG TABLET PO SCH (07:51)
[2021-03-06] MEDS: methylPREDNISolone SOD SUCC PF 40 MG/ML VIAL. IV SCH (07:51)
[2021-03-06] MEDS: FUROSEMIDE 40 MG TABLET PO SCH (07:51)
[2021-03-06] MEDS: GLIMEPIRIDE 2 MG TABLET PO SCH (07:51)
[2021-03-06 07:52] VITALS: BP_DIAS 71
[2021-03-06] MEDS: amLODIPine BESYLATE 10 MG TABLET PO SCH (07:52)
[2021-03-06] MEDS: AZITHROMYCIN 250 MG TABLET. PO SCH (07:52)
[2021-03-06] MEDS: ATENOLOL 50 MG TABLET PO SCH (07:52)
[2021-03-06] MEDS: LACTOBACILLUS RHAMNOSUS GG 1 CAPSULE. PO SCH (07:52)
[2021-03-06] MEDS: LISINOPRIL 20 MG TABLET PO SCH (07:52)
[2021-03-06] MEDS: INSULIN LISPRO 300 UNITS/3 ML VIAL. SQ SCH ×2 (07:53→12:38)
[2021-03-06] MEDS: DICLOFENAC SODIUM 1% TOPICAL GEL 100GM TUBE. TP SCH (09:00)
[2021-03-06] MEDS ORDERED: ACETAMINOPHEN 500 MG TABLET PO SCH (10:25)
[2021-03-06 11:55] VITALS: BP_SYST 121
--- NOTE | 2021-03-06 14:00 | NUR ---
NURSING NOTE DISCHARGE PT DISCHARGED TO [facility] VIA MEDICOACH TRANSPORT. REPORT CALLED TO [facility]. PACKET SENT WITH TRANSPORT. PT AT BEDSIDE DURING DISCHARGE. TANNA MOCK.
--- NOTE | 2021-03-17 21:09 | DS ---
DATE OF DISCHARGE: 03/06/2021 HOSPITAL COURSE: An 85-year-old male who came in with increased shortness of breath, has multiple medical issues. The patient was having problems with breathing, was noted to go into acute congestive heart failure for his longstanding cardiac problems. The patient was brought in. He was placed on an aggressive therapy of diuresis. He did show some signs of confusion and mental status changes along with his heart failure. He received PT, OT for severe physical and occupational therapy problems with his joints and needed further attention with them as well. His white count had gone up to high as 15,000, hemoglobin 11.8 and 35. Chemistry showed blood sugars in the 180-140 range. Otherwise, sodium of 139, potassium 4.6, BUN and creatinine 48 and 3, blood sugar 102. A1c of approximately 7. In any case, the patient made good progress during the rest of his hospitalization. D-dimer was elevated and he had a V/Q scan, which was negative for clots. Otherwise, he also had a head CT because of his change in mental status showed no acute findings and chest x-ray as noted did not show anything obvious, but his labs and his clinical findings did demonstrate the fact that the patient did have acute respiratory failure with congestive heart failure. As noted, Cardiology also reviewed the patient and made note of the patient's chronic diastolic congestive heart failure. The patient in any case, made good progress with aggressive pulmonary toilet, mild diuresis. PT, OT for his degenerative arthritis and made good progress, and was discharged to a nursing facility for further care at that facility. The patient will go to the [facility], and make further evaluation, therefore, on this very nice patient. FINAL DIAGNOSES: Includes that of acute respiratory failure with acute exacerbation of chronic obstructive pulmonary disease, chronic diastolic CHF, accelerated hypertension, controlled; acute mental status change, hyperlipidemia, type 2 diabetes, chronic kidney disease stage IIIA, mild dementia, severe degenerative arthritis of the extremities, hyperglycemia, hyperlipidemia, hematuria. PLAN: The patient will be on a heart healthy, low sodium diet, decreased activity and have him follow up accordingly with his [facility] physician for followup and continued PT, OT at that facility. NIDIA DR: Kenny TID: [id number]
== END 2021-03-06 14:01 | DRG 177 ==
LOC: 1 SOUTH 11:35
PROVIDERS: ADMIT Family Medicine; ATTEND Family Medicine
DX: J15.6 Pneumonia due to other Gram-negative bacteria (principal); I50.33 Acute on chronic diastolic (congestive) heart failure; J96.00 Acute respiratory failure, unspecified whether with hypoxia or hypercapnia; I13.0 Hypertensive heart and chronic kidney disease with heart failure and stage 1 through stage 4 chronic kidney disease, or unspecified chronic kidney disease; J44.1 Chronic obstructive pulmonary disease with (acute) exacerbation; J44.0 Chronic obstructive pulmonary disease with (acute) lower respiratory infection; J15.9 Unspecified bacterial pneumonia; E11.22 Type 2 diabetes mellitus with diabetic chronic kidney disease; E66.01 Morbid (severe) obesity due to excess calories; E78.5 Hyperlipidemia, unspecified; F02.80 Dementia in other diseases classified elsewhere, unspecified severity, without behavioral disturbance, psychotic disturbance, mood disturbance, and anxiety; G30.9 Alzheimer's disease, unspecified; G47.33 Obstructive sleep apnea (adult) (pediatric); M17.0 Bilateral primary osteoarthritis of knee; N18.32 Chronic kidney disease, stage 3b; Z99.81 Dependence on supplemental oxygen; Z20.822 Contact with and (suspected) exposure to COVID-19; Z68.39 Body mass index [BMI] 39.0-39.9, adult; Z88.8 Allergy status to other drugs, medicaments and biological substances
CPT/HCPCS: 36415; 70450; 71045; 71046; 78582; 80048; 80053; 80061; 81001; 82550; 82947; 83605; 83880; 84443; 84484; 85025; 85379; 87426; 93005; 94640; 94760; 96374; A9540; A9558; J0696; J1815; J1940; J2405; J2920; U0003; 97110; 97530

== ENCOUNTER → 2021-06-16 | Outpatient (CLI) | payer MEDICARE ==
[~2021-06-16] MED LIST changes: -DOXY100C2 PO; +DOXY100C3 PO
--- NOTE | 2021-06-16 11:17 | RAD ---
EXAM: Bilateral knees, 3 views. HISTORY: Pain. COMPARISON: None. FINDINGS: 3 views of both knees are obtained. There is mild medial compartment predominant tricompart mental joint space narrowing and spurring involving the right knee. There is a right knee chondrocalc inosis. There is a small right knee effusion. There is mild degenerative subchondral cyst formation a nd spurring involving the left patellofemoral compartment. There is no fracture, dislocation or sublu xation. IMPRESSION: 1. Mild medial compartment predominant tricompartmental osteoarthritis of the right knee with small j oint effusion. 2. Mild patellofemoral compartment osteoarthritis of the left knee. Electronically signed by: Maegan Linda MD (06/16/2021 11:15 AM) [id number]
== END ==
LOC: ECHO 10:35
PROVIDERS: ATTEND Orthopaedic Surgery
DX: M17.0 Bilateral primary osteoarthritis of knee (principal); M25.461 Effusion, right knee; M11.261 Other chondrocalcinosis, right knee; M25.862 Other specified joint disorders, left knee
CPT/HCPCS: 73562-50

== ENCOUNTER 2021-07-06 21:54 | Emergency (ER) | payer MEDICARE ==
[~2021-07-06] VITALS: Ht 165.1 cm; Wt 95.1 kg
[~2021-07-06 21:54] MED LIST changes: -LISI1TAB20 PO; +LISI1TAB39 PO; -VANC1VIA34 MC; +VANC1VIA37 MC
[2021-07-06] MEDS: ACETAMINOPHEN 500 MG TABLET PO ONE ×2 (22:15→23:49)
[2021-07-06] MEDS ORDERED: VANCOMYCIN 1 GM in IV NORMAL SALINE 250ML 250 ML IV ONE (22:15)
[2021-07-06] MEDS: ASPIRIN CHEWABLE 81 MG TABLET. PO ONE ×2 (22:15→23:49)
[2021-07-06] MEDS ORDERED: ALBUTEROL SULFATE 8GM INHALER. INH ONE (22:15)
--- NOTE | 2021-07-06 22:37 | PHYS DOC ---
Past History Past Medical History: CAD, CHF, COPD, Prostatitis Past Surgical History: No Surgical History Alcohol Use: None Drug Use: None General Adult EDM: Chief Complaint: SHORTNESS OF BREATH HPI: HPI: Patient is a 86 year old male transfer from [facility], who presents with above hx and complaints of increased dyspnea the last few days. Pt. also had hematuria after removal if galeana today. Details are some what limited because [facility] did not call prior to transfer. Pt. normally follows with Dr. Craig in past. Patient has past medical history of chronic obstructive pulmonary disease, recurrent episodes of pneumonia, asthma, malnutrition, morbid obesity, Alzheimer's, diastolic and systolic heart failure, neuromuscular dysfunction of bladder, diabetes, chronic constipation, chronic pain, osteoarthritis, deconditioning and muscle weakness, upper respiratory infections, history of alcohol abuse, marked hearing deficit, oxygen dependent at 2 L, and sleep apnea. Patient has been a resident at [facility] since 03/06/2021. Reportedly patient has completed COVID vaccination. His primary care physician at [facility] is . Review of Systems: Review of Systems: Constitutional: Denies fever or chills Eyes: Denies change in visual acuity HENT: Denies nasal congestion or sore throat Respiratory: Denies cough or shortness of breath Cardiovascular: Denies chest pain or edema GI: Denies abdominal pain, nausea, vomiting, bloody stools or diarrhea : Denies dysuria Musculoskeletal: Denies back pain or joint pain Integument: Denies rash Neurologic: Denies headache, focal weakness or sensory changes Endocrine: Denies polyuria or polydipsia Lymphatic: Denies swollen glands Psychiatric: Denies depression or anxiety Current Medications: Current Meds: Current Medications Medications (Trade) Dose Ordered Sig/Yusuf Start Time Stop Time Status Last Admin Dose Admin Acetaminophen (Tylenol) 1,000 mg 1X ONCE 07/06/21 22:15 07/06/21 22:16 UNV Albuterol Sulfate (Ventolin Hfa Inhaler) 2 puff 1X ONCE 07/06/21 22:15 07/06/21 22:16 UNV Aspirin (Aspirin Chewable) 324 mg 1X ONCE 07/06/21 22:15 07/06/21 22:16 UNV Ceftriaxone Sodium 1 gm/ Sodium Chloride 50 ml @ 100 mls/hr 1X ONCE 07/06/21 22:15 07/06/21 22:44 UNV Vancomycin HCl 1 gm/Sodium Chloride 250 ml @ 250 mls/hr 1X ONCE 07/06/21 22:15 07/06/21 23:14 UNV Allergies: Allergies: Allergies Coded Allergies Type Severity Reaction Last Updated Verified Penicillins Allergy Intermediate Nausea and Vomiting 05/23/14 Yes codeine Allergy Intermediate Itching 05/23/14 Yes Physical Exam: PE: Constitutional:moderate acute distress, non-toxic appearance. [] HENT: Normocephalic, atraumatic, bilateral external ears normal, oropharynx dry, no oral exudates, nose normal. [] Eyes: PERRLA, EOMI, conjunctiva normal, no discharge. [] Neck: Normal range of motion, no tenderness, supple, no stridor. [] Cardiovascular:Heart rate regular rhythm, no murmur [. Tachycardia PMI to the left. Monitor shows a sinus rhythm 90s to 100] Lungs & Thorax: Bilateral breath sounds bibasilar crackles auscultation [] Abdomen: Bowel sounds normal, soft, no tenderness, no masses, no pulsatile masses. Lower pelvic tenderness Skin: Warm, dry, no erythema, no rash. Poor turgor Back: No tenderness, no CVA tenderness. [] Extremities: No tenderness, no cyanosis, no clubbing, ROM intact, no edema. Arthritic changes Neurologic: Alert and oriented X 3, normal motor function, normal sensory function, no focal deficits noted. [] Psychologic: Affect anxious, judgement normal, mood normal. [] EKG: EKG: My interpretation EKG shows a sinus rhythm at 93 bpm. No acute morphology. Time of EKG is 2228 hrs. [] Radiology/Procedures: Radiology/Procedures: [][address] [address] IMAGING REPORT Signed PATIENT: RENATO CLARK ACCOUNT: [id number] : 1935 LOCATION: ER AGE: 86 SEX: M EXAM STATUS: REG ER ORD. PHYSICIAN: NIMISHA DAVENPORT MD REASON: OMNI 350,85ML IV.Dyspnea, hypoxia PROCEDURE: CT ANGIO CHEST W ABD PEL W/ Examination: CT angiography chest abdomen pelvis with IV contrast History: Hypoxia, dyspnea Galeana catheter placement COMPARISON: None available TECHNIQUE: Axial CT angiography of the chest abdomen pelvis were performed with IV contrast. Coronal and sagittal 3-D MIP reformats are performed Exposure: One or more of the following individualized dose reduction techniques were utilized for this examination: 1. Automated exposure control 2. Adjustment of the mA and/or kV according to patient size 3. Use of iterative reconstruction technique FINDINGS: The central airways are patent. Coronary artery calcifications identified. The caliber of the aorta grossly appears unremarkable. There is no evidence of filling defect identified in the main pulmonary arterial trunk and right and left main pulmonary arteries and visualized lobar, segmental branches of the pulmonary arteries. Mild scattered airspace opacities bilateral lungs probably atelectasis infiltrates. Moderate degenerative changes thoracic and lumbar spine. The liver, spleen, adrenals grossly appears unremarkable. The gallbladder is mildly distended. The stomach is mildly distended. Moderate atrophic changes of the pancreas. The small bowel is nondilated. Feces and gas noted in the colon Contrast is identified in the urinary bladder with prominent appearing soft tissue extending into the inferior aspect of the gallbladder measuring 3.5 x 2.5 cm could be urinary bladder mass or projection of the prostate the urinary bladder or debris. Galeana catheter balloon identified is identified in the urethra just distal to the prostate and does not appear to be within the urinary bladder Moderate degenerative changes thoracic and lumbar spine. IMPRESSION: 1. No evidence of pulmonary embolism. 2. Contrast is identified in the urinary bladder with prominent appearing soft tissue extending into the inferior aspect of the gallbladder measuring 3.5 x 2.5 cm could be urinary bladder mass or projection of the prostate the urinary bladder or debris. Galeana catheter balloon identified in the urethra just distal to the prostate and does not appear to be within the urinary bladder. 3. Mild scattered airspace opacities bilateral lungs probably atelectasis infiltrates. Follow-up to resolution. FOR INTERNAL CODING PURPOSES Critical result: Findings discussed with ER physician at 07/07/2021 2:16 AM. RESULT CODE: (C) Electronically signed by: Teodoro Sharma MD (07/07/2021 2:17 AM) [id number] DICTATED AND SIGNED BY: TEODORO SHARMA MD DATE: 07/07/21 020 CC: NIMISHA DAVENPORT MD; ROBE TEIXEIRA MD ~MTH0 0 Heart Score: C/O Chest Pain: No HEART Score for Chest Pain: HEART Score for Chest Pain Response (Comments) Value History Moderately Suspicious 1 ECG Nonspecific Repolarizatio 1 Age > 65 2 Risk Factors >3 Risk Factors or Hx CAD 2 Troponin >3 x Normal Limit 2 Total 8 Risk Factors: Risk Factors: DM, Current or recent (<one month) smoker, HTN, HLP, family history of CAD, obesity. Risk Scores: Score 0 - 3: 2.5% MACE over next 6 weeks - Discharge Home Score 4 - 6: 20.3% MACE over next 6 weeks - Admit for Clinical Observation Score 7 - 10: 72.7% MACE over next 6 weeks - Early Invasive Strategies Course & Med Decision Making: Course & Med Decision Making Pertinent Labs and Imaging studies reviewed. (See chart for details Discussed presentation, testing and tx. plan with Dr. Craig. Initial plan was admit to [facility], but unable to pass galeana for irrigation, and pt. found with findings of acute LA and SIRS. Lack of bed for transfer to [facility], was accepted at [facility] [place]. Pt. transfered to Dr. Crawford accepting. Impression: 1. SIRS 2. Anemia 12.8 3. Urinary Treact Obstructin- Prostate, ? Mass 4. Elevate Lactic Acid 4.4 5. LA- Trop 610 6. Elevated D-dimer > 19. 7. Renal Insuf. 1.4 Critical Care 90 min. Dragon Disclaimer: Dragon Disclaimer: This electronic medical record was generated, in whole or in part, using a voice recognition dictation system. Departure Departure: Referrals: MANDY CRAIG MD (PCP) Lucius Disclaimer This chart was dictated in whole or in part using Voice Recognition software in a busy, high-work load, and often noisy Emergency Department environment. It may contain unintended and wholly unrecognized errors or omissions. NIMISHA DAVENPORT MD Jul 06, 2021 22:37
--- NOTE | 2021-07-06 22:44 | EKG ---
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
[2021-07-06] MEDS ORDERED: VANCOMYCIN 1.75 GM in IV NORMAL SALINE 500ML 500 ML IV ONE (22:45)
[2021-07-06 23:05] LABS: BGAS PH 7.42 (7.35-7.46)
[2021-07-06 23:37] LABS: BASO % 1 % (0-3); EOS # 0.5 x10^3/uL (0.0-0.7); EOS % 14 % (0-3); HEMATOCRIT 39.5 % (39.0-53.0); HEMOGLOBIN 12.8 g/dL (13.0-17.5); LYMPH # 0.3 x10^3/uL (1.0-4.8); LYMPH % 10 % (24-48); MEAN CORPUSCULAR HEMOGLOBIN 29 pg (25-35); MEAN CORPUSCULAR HGB CONC 32 g/dL (31-37); MEAN CORPUSCULAR VOLUME 90 fL (79-100); MONO % 1 % (0-9); NEUT # 2.4 x10^3uL (1.8-7.7); NEUT % 75 % (31-73); PLATELET COUNT 212 x10^3/uL (140-400); RED BLOOD COUNT 4.38 x10^6/uL (4.30-5.70); RED CELL DISTRIBUTION WIDTH 13.1 % (11.5-14.5); WHITE BLOOD COUNT 3.3 x10^3/uL (4.0-11.0)
[2021-07-06] MEDS ORDERED: cefTRIAXone SODIUM 1 GM VIAL ONE (23:37)
[2021-07-06] MEDS ORDERED: IV NORMAL SALINE 50ML 50 ML ONE (23:37)
[2021-07-06 23:40] LABS: CALCIUM 8.8 mg/dL (8.5-10.1); CREATININE 1.4 mg/dL (0.7-1.3); GFR 48.3; POTASSIUM 4.4 mmol/L (3.5-5.1)
[2021-07-06 23:53] LABS: ALBUMIN 3.2 g/dL (3.4-5.0); DIRECT BILIRUBIN 0.2 mg/dL (0.0-0.2); MAGNESIUM 1.7 mg/dL (1.8-2.4); TOTAL BILIRUBIN 0.8 mg/dL (0.2-1.0); TOTAL PROTEIN 7.2 g/dL (6.4-8.2)
[2021-07-06] MEDS ORDERED: ACETAMINOPHEN 650 MG SUPP.RECT. ONE (23:54)
[2021-07-07] MEDS ORDERED: ACETAMINOPHEN 650 MG SUPP.RECT. PR ONE
[2021-07-07] MEDS ORDERED: CONTRAST GIVEN. MC PRN (00:15)
[2021-07-07] MEDS ORDERED: IOHEXOL 300 MG/ML 75 ML VIAL. IJ ONE (00:15)
[2021-07-07] MEDS ORDERED: IV RINGERS SOLUTION,LACTATED 1,000 ML IV ONE (00:45)
[2021-07-07] MEDS ORDERED: BISA10SU4 RC (00:51)
[2021-07-07] MEDS ORDERED: OXYM-20 NS (00:51)
[2021-07-07] MEDS ORDERED: SENN-182 PO (00:51)
[2021-07-07] MEDS ORDERED: TRAM50TA PO (00:51)
[2021-07-07] MEDS ORDERED: GUAI100S4 PO (00:51)
[2021-07-07] MEDS ORDERED: POLY17PO5 PO (00:51)
[2021-07-07] MEDS ORDERED: IOHEXOL 350 MG/ML 100 ML VIAL. IV ONE (01:00)
[2021-07-07] MEDS ORDERED: LIDOCAINE 2% JELLY 6ML IN APPLICATOR. ONE (02:16)
--- NOTE | 2021-07-07 02:19 | RAD ---
Examination: CT angiography chest abdomen pelvis with IV contrast History: Hypoxia, dyspnea Iglesias catheter placement COMPARISON: None available TECHNIQUE: Axial CT angiography of the chest abdomen pelvis were performed with IV contrast. Coronal and sagittal 3-D MIP reformats are performed Exposure: One or more of the following individualized dose reduction techniques were utilized for thi s examination: 1. Automated exposure control 2. Adjustment of the mA and/or kV according to patient size 3. Use of iterative reconstruction technique FINDINGS: The central airways are patent. Coronary artery calcifications identified. The caliber of the aorta g rossly appears unremarkable. There is no evidence of filling defect identified in the main pulmonary arterial trunk and right and left main pulmonary arteries and visualized lobar, segmental branches of the pulmonary arteries. Mild scattered airspace opacities bilateral lungs probably atelectasis infil trates. Moderate degenerative changes thoracic and lumbar spine. The liver, spleen, adrenals grossly appears unremarkable. The gallbladder is mildly distended. The stomach is mildly distended. Moderate atrophic changes of the pancreas. The small bowel is nondilated. Feces and gas noted in the colon Contrast is identified in the urinary bladder with prominent appearing soft tissue extending into the inferior aspect of the gallbladder measuring 3.5 x 2.5 cm could be urinary bladder mass or projectio n of the prostate the urinary bladder or debris. Iglesias catheter balloon identified is identified in t he urethra just distal to the prostate and does not appear to be within the urinary bladder Moderate degenerative changes thoracic and lumbar spine. IMPRESSION: 1. No evidence of pulmonary embolism. 2. Contrast is identified in the urinary bladder with prominent appearing soft tissue extending into the inferior aspect of the gallbladder measuring 3.5 x 2.5 cm could be urinary bladder mass or proje ction of the prostate the urinary bladder or debris. Iglesias catheter balloon identified in the urethra just distal to the prostate and does not appear to be within the urinary bladder. 3. Mild scattered airspace opacities bilateral lungs probably atelectasis infiltrates. Follow-up to resolution. FOR INTERNAL CODING PURPOSES Critical result: Findings discussed with ER physician at 07/07/2021 2:16 AM. RESULT CODE: (C) Electronically signed by: Teodoro Sharma MD (07/07/2021 2:17 AM) [id number]
[2021-07-07] MEDS ORDERED: ALBUTEROL SULFATE 8GM INHALER. ONE (03:23)
[2021-07-07] MEDS ORDERED: ONDANSETRON PF 4 MG/2 ML VIAL. IVP PRN (04:00)
[2021-07-07] MEDS ORDERED: VANCOMYCIN PER PHARMACY MC PRN (04:00)
[2021-07-07] MEDS ORDERED: ACETAMINOPHEN 325 MG TABLET PO PRN (04:00)
--- NOTE | 2021-07-07 04:33 | RAD ---
EXAM: CHEST 1 VIEW History: Dyspnea COMPARISON: 03/05/2021. TECHNIQUE: Single portable radiograph of the chest FINDINGS: The cardiac silhouette is unremarkable. Mild bibasilar lung airspace opacities. The costop hrenic sulci are clear and well demarcated. IMPRESSION: Mild bibasilar lung airspace opacities likely atelectasis or infiltrates. Electronically signed by: Teodoro Sharma MD (07/07/2021 4:31 AM) [id number]
--- NOTE | 2021-07-07 05:34 | RAD ---
Examination: Frontal view of the abdomen HISTORY: History of bleeding from Iglesias catheter COMPARISON: None available Findings/ impression: Contrast is identified in the urinary bladder . Iglesias catheter balloon appears to be projecting in th e urethra. Electronically signed by: Teodoro Sharma MD (07/07/2021 5:31 AM) [id number]
[2021-07-07 05:48] LABS: INFLUENZA A PATIENT NEGATIVE (NEGATIVE); INFLUENZA B PATIENT NEGATIVE (NEGATIVE)
[2021-07-07 06:20] VITALS: BP 117/55
--- NOTE | 2021-07-07 06:37 | NUR ---
Pharmacy Vancomycin Dosing Note S:Consulted to monitor and dose vancomycin started 07/06/21. O:RENATO CLARK is a 86 year old M with HCAP, . Height: 5 feet, 5 inches Weight: 95.1 kg [place] Body Weight: 61.50 Adjusted Body Weight: 74.90 Dosing Weight: Actual Other Antibiotics: CTX X 1 ED LABS: Last BUN: 23 Last Creatinine: 1.4 Creatinine Clearance: 42 Last WBC: 3.3 Last Procalcitonin: Tmax (past 24 hours): 100.8 Microbiology: I/O: Drug Levels: Last level: on at Last dose given 07/06/21 at 2300 Vancomycin Dosing: Loading Dose: 2000 mg x1 Dosing Weight: Actual Target Trough: 15-20 A: Based on: WEIGHT, CRCL~42. P: 1. INITIATE Vancomycin 1500 mg IV q24h AFTER 2000 MG LOADING DOSE 2. Follow up Trough level on 07/08/21 at 2300 3. Pharmacy will continue to monitor, follow and adjust therapy as needed. ADRIANA VILLA [facility], 07/07/21 0638
[2021-07-07] MEDS ORDERED: IPRATRPIUM/ALBUTEROL 0.5/2.5MG 3 ML NEBU. NEB SCH (08:00)
[2021-07-07] MEDS ORDERED: ALBUTEROL SULFATE 8GM INHALER. INH SCH (09:00)
[2021-07-07] MEDS ORDERED: methylPREDNISolone SOD SUCC PF 125 MG/2 ML VIAL. IV SCH (09:00)
[2021-07-07] MEDS ORDERED: VANCOMYCIN 1.5 GM in IV NORMAL SALINE 500ML 500 ML IV SCH (23:30)
== END 2021-07-07 07:22 ==
LOC: ER 21:54 → UNDOADMIN 07-07 03:55 → 1 SOUTH 07-07 03:55 → ER 07-07 07:22
DX: R06.00 Dyspnea, unspecified (principal); J44.9 Chronic obstructive pulmonary disease, unspecified; I50.9 Heart failure, unspecified; N13.9 Obstructive and reflux uropathy, unspecified; Z20.822 Contact with and (suspected) exposure to COVID-19
CPT/HCPCS: 36415; 36600; 51702; 71045; 71275; 74018; 74177; 80048; 80076; 82550; 82803; 83605; 83690; 83735; 83880; 84443; 84484; 85025; 85379; 85610; 85730; 87015; 87040; 87077; 87186; 87205; 87426; 87804; 93005; 94640; 96361; 96365; 96366; 99285; C9803; G0103; J0696; J3370; J7040; J7120; Q9967; U0003; 84153; 96368; 94664

== ENCOUNTER 2022-01-09 21:01 | Emergency (ER) | payer MEDICARE, OTHER ==
[~2022-01-09] VITALS: Ht 172.7 cm; Wt 92.1 kg
[~2022-01-09 21:01] MED LIST changes: +BISA10SU4 RC; +GUAI100S4 PO; +OXYM-20 NS; +POLY17PO5 PO; +SENN-182 PO; +TRAM50TA PO
[2022-01-09 21:07] VITALS: BP 130/56
--- NOTE | 2022-01-09 21:13 | PHYS DOC ---
Past History Past Medical History: CAD, CHF, COPD, Prostatitis Past Surgical History: No Surgical History Alcohol Use: None Drug Use: None Adult General Chief Complaint Chief Complaint: CATHETER CHANGE HPI HPI Patient is an 86-year-old male presenting from his snf after accidentally pulling his Iglesias catheter out and staff not being able to put it back in. Denies any other issues. Sent over to replace catheter. Review of Systems Review of Systems Review of systems otherwise unremarkable except noted in HPI Allergies Allergies Allergies Coded Allergies Type Severity Reaction Last Updated Verified codeine Allergy Intermediate Itching 05/23/14 Yes I S O L A T I O N *CONTACT* Allergy Unknown 07/12/21 Yes Penicillins Adverse Reaction Intermediate Nausea and Vomiting 07/07/21 Yes Physical Exam Physical Exam Constitutional: Well developed, well nourished, no acute distress, non-toxic appearance. [] HENT: Normocephalic, atraumatic, bilateral external ears normal, oropharynx moist, no oral exudates, nose normal. [] : No genital injuries, Iglesias catheter placed successfully and draining. Neurologic: Alert and oriented X 3, normal motor function, normal sensory function, no focal deficits noted. [] Psychologic: Affect normal, judgement normal, mood normal. [] EKG EKG [] Radiology/Procedures Radiology/Procedures [] Heart Score C/O Chest Pain: No Risk Factors: Risk Factors: DM, Current or recent (<one month) smoker, HTN, HLP, family history of CAD, obesity. Risk Scores: Risk Factors: DM, Current or recent (<one month) smoker, HTN, HLP, family history of CAD, obesity. Course & Med Decision Making Course & Med Decision Making Patient is an 86-year-old male who presents to the emergency department from his snf after dislodging his Iglesias catheter by mistake for replacement Vital signs nonconcerning. Physical exam noted above. Iglesias catheter placed successfully and draining. Initially had a tiny bit of blood which resolved. Denies need for pain or nausea medicine Discussed findings with patient. Advised to follow-up with primary care physician in the morning. Gave return precautions to the ED. Patient grateful, verbalized understanding agreed with plan of discharge. [] Dragon Disclaimer Dragon Disclaimer This electronic medical record was generated, in whole or in part, using a voice recognition dictation system. Departure Departure: Impression: Primary Impression: Dislodged Iglesias catheter Disposition: HOME / SELF CARE / HOMELESS Condition: STABLE Referrals: ROBE TEIXEIRA MD (PCP) Patient Instructions: Iglesias Catheter Care, Adult Additional Instructions: Thank you for coming into the emergency department tonight and allowing us to take care of you. Please read the attached information carefully to go over things we discussed. Please follow-up in the morning with your primary care physician update on your ED visit and set up a follow-up. Please come back with new or concerning symptoms as discussed. JESSICA CARDONA MD January 09, 2022 21:13
[2022-01-09] MEDS ORDERED: LIDOCAINE 2% JELLY 6ML IN APPLICATOR. ONE (21:21)
== END 2022-01-09 22:26 | disposition home or self-care (01) ==
LOC: ER 21:01
DX: T83.028A Displacement of other urinary catheter, initial encounter (principal); I25.10 Atherosclerotic heart disease of native coronary artery without angina pectoris; I50.9 Heart failure, unspecified; J44.9 Chronic obstructive pulmonary disease, unspecified; Z88.5 Allergy status to narcotic agent; Z88.0 Allergy status to penicillin; Z88.8 Allergy status to other drugs, medicaments and biological substances
CPT/HCPCS: 51702; 99284